=== PATIENT | female | born 1945 | race Caucasian/White ===

== ENCOUNTER 2020-01-26 11:04 | Outpatient (CLI) | payer MEDICARE, SELFPAY ==
--- NOTE | ~2020-01-26 | MM_ITS ---
EXAMINATION: MM diagnostic kyle RT w gaurav HISTORY: Personal history right breast cancer; status post right partial mastectomy in 2017 TECHNIQUE: Additional 3-D tomosynthesis images of were performed and synthetic 2-D images were genera nitza. CAD analysis was submitted and interpreted. COMPARISON: 07/28/2019, 01/24/2019 diagnostic right mammogram examinations BREAST PARENCHYMAL COMPOSITION: There are scattered areas of fibroglandular density. FINDINGS: Status post right partial mastectomy for history of breast cancer. Postoperative changes including surgical clips; no interval suspicious mass or new architectural dist ortion, skin thickening or retraction or any malignant calcification is evident. IMPRESSION: 1. Status post right partial mastectomy for breast cancer 2. No mammographic evidence of malignancy or significant change since 01/24/2019 BI-RADS Category 2: Benign finding(s). Reviewed, dictated and finalized at location A. IFIED SCRUM MASTER
== END 2020-01-26 11:05 | disposition home or self-care (01) ==
LOC: ANHIMG 11:23
PROVIDERS: PCP Family Medicine; Visit Provider Surgery Plastic and Reconstructive Surgery
DX: C50.511 Malignant neoplasm of lower-outer quadrant of right female breast (principal); Z17.0 Estrogen receptor positive status [ER+]
CPT/HCPCS: 77061; 77065; G0279

== ENCOUNTER 2020-04-08 14:43 | Emergency (ER) | payer MEDICARE, SELFPAY ==
--- NOTE | ~2020-04-08 | CT_ITS ---
EXAMINATION: CT abdomen pelvis w con INDICATION: Lower abdominal pain TECHNIQUE: Computed tomographic images of the abdomen and pelvis were obtained after the administrati on of 100 cc of Omnipaque 350 intravenous contrast. The dose-length product (DLP) was 198.92 mGy-cm. Automated exposure control and iterative reconstruction technique were employed. COMPARISON: 04/16/2016 FINDINGS: Minimal dependent atelectasis is present in the lung bases. The heart size is normal. The l iver, spleen, pancreas, gallbladder, and adrenal glands are normal. The kidneys are unremarkable. No pathologically enlarged abdominal or pelvic lymph nodes are identified. There is no free intraperiton eal gas or evidence of bowel obstruction. There is calcified atherosclerosis of the aorta and many of the other arteries. A moderate volume of colonic stool is present. There is mild lumbar spondylosis. IMPRESSION: 1. No CT correlate for the patient's symptoms. Reviewed, dictated and finalized at location A.
[2020-04-08 14:59] VITALS: BP 154/84; PULSE 69; RESP 18; TEMP 37.2; O2SAT 100
[2020-04-08 15:17] LABS: Basophils Absolute Auto 0.1 K/mm3 (0.0-0.1); Basophils Percent Auto 0.9 % (0.2-1.2); Eosinophils Absolute Auto 0.4 K/mm3 (0-0.3); Eosinophils Percent Auto 4.5 % (0-4.4); Hematocrit 41.9 % (37.0-47.0); Hemoglobin 14.4 g/dL (12.0-15.0); Immature Granulocyte Absolute 0.01 K/mm3 (0.00-0.031); Immature Granulocyte Percent A 0.1 % (0-0.5); Lymphocytes Absolute Auto 2.48 K/mm3 (0.9-3.2); Mean Corpuscular HGB Conc 34.4 g/dl (32-36); Mean Corpuscular Hemoglobin 32.7 pg (26-34); Mean Corpuscular Volume 95.2 fl (80-100); Mean Platelet Volume 9.2 fl (7.4-10.4); Monocytes Absolute Auto 0.7 K/mm3 (0.1-0.6); Neutrophils Absolute Auto 4.4 K/mm3 (1.3-6.7); Neutrophils Percent Auto 54.5 % (45.5-73.1); Platelet Count Result 322 k/mm3 (150-375)
[2020-04-08 15:29] LABS: Add Urine Microscopic? YES; Appearance Urine Clear (Clear); Bilirubin Urine Negative (Negative); Blood Urine 1+ (Negative); Color Urine Yellow (Yellow); Glucose Urine UA Negative (Negative); Ketones Urine Negative (Negative); Leukocyte Esterase Ur 1+ LEU/UL (Negative); Nitrate Urine Negative (Negative); Protein Urine Negative (Negative); RBC Urine 0-2 /hpf (0-2); Specific Grav Ur 1.011 (1.001-1.035); Squamous Epithelial Cell Urine Rare /hpf (Few); Urobilinogen Urine Negative mg/dL (<2.0)
[2020-04-08 15:32] LABS: Alanine Aminotransferase 15 U/L (4-35); Albumin Level 4.5 g/dL (3.5-5.1); Alkaline Phosphatase 62 U/L (38-126); Aspartate Amino Transferase 25 U/L (14-36); Bilirubin,Total 0.3 mg/dL (0.2-1.3); Blood Urea Nitrogen 13 mg/dL (7-17); Calcium 9.2 mg/dL (8.4-10.2); Carbon Dioxide 23 mmol/L (22-30); Chloride 98 mmol/L (98-107); Estimated CRCL calculation 53 ml/min; Estimated Glomerular Filt Rate > 60; Glucose 104 mg/dL (65-105); Lipase 196 U/L (23-300); Potassium 4.1 mmol/L (3.4-5.0); Sodium 129 mmol/L (137-145)
[2020-04-08 17:46] VITALS: BP 175/82; PULSE 60; RESP 18; O2SAT 100
--- NOTE | 2020-04-08 18:20 | PC.NURSE ---
called CT to make aware of IV placed for scan
--- NOTE | 2020-04-08 18:31 | ED.ABDPAIN ---
HPI - Abdominal Pain General Chief Complaint: Abdominal Pain Stated Complaint: PCP sent patient for CT of abd Time Seen by Provider: 04/08/20 16:23 Source: patient Mode of arrival: ambulatory Limitations: no limitations History of Present Illness HPI narrative: This is a 75 year old female that presents to the ER for abdominal pain x 2 days. Reports lower abdominal pain. Also reports some dysuria. Reports she was seen by her PCP for this and PCP tried to order a CT scan, but could not get it approved by insurance. Patient was told to report to the ER. Denies fever, nausea, vomiting, diarrhea, or hematuria. Related Data Home Medications Medication Instructions Recorded Confirmed atenolol 25 mg PO 04/08/20 hjlicxljey-ieimtbd-nafmvemk cap 04/08/20 Allergies Allergy/AdvReac Type Severity Reaction Status Date / Time prednisone Allergy Severe SHAKINESS Verified 04/08/20 16:19 tramadol Allergy Unknown Unknown Verified 04/08/20 16:21 cefprozil AdvReac Unknown SEVERE Verified 04/08/20 16:19 VOMITING topiramate AdvReac Unknown SEVERE Verified 04/08/20 16:19 VOMITING venlafaxine AdvReac Unknown SEVERE Verified 04/08/20 16:19 VOMITING Review of Systems Review of Systems: Narrative: CONSTITUTIONAL: Denies fever GASTROINTESTINAL: Reports abdominal pain. Denies nausea, vomiting, or diarrhea. GENITOURINARY: Denies dysuria or hematuria. All systems reviewed & are unremarkable except as noted in HPI and below PMFSH Past Medical History Medical History (Updated 04/08/20 @ 20:19 by Mackenzie Jacinto PA-C) History of breast cancer History of fibromyalgia History of hypertension Surgical History Surgical History (Updated 04/08/20 @ 18:35 by Mackenzie Jacinto PA-C) History of hysterectomy History of tonsillectomy Exam Narrative: Exam Narrative: GENERAL: Elderly, well-nourished, and in no acute distress. HEAD: Normocephalic, atraumatic. EYES: EOMI. CHEST: Clear to auscultation. No respiratory distress. No wheezes rales or rhonchi HEART: Regular rate and rhythm. No murmur heard. Normal peripheral pulses. ABDOMEN: Soft, nondistended, normal active bowel sounds. Mild tenderness to palpation of the lower abdomen, without guarding EXTREMITIES: Normal range of motion. No edema. SKIN: Warm, dry, no rash. NEURO: No focal deficits. Alert and oriented x3. PSYCH: Normal mood and affect Course Consultations Consultation #1: Spoke with patient's primary, Dr Crowley about work-up will follow-up in clinic. Date: 04/08/20 Time: 21:02 Vital Signs Vital signs: Vital Signs Temperature 99.0 F 04/08/20 14:59 Pulse Rate 69 04/08/20 14:59 Respiratory Rate 18 04/08/20 14:59 Blood Pressure 154/84 H 04/08/20 14:59 Pulse Oximetry 100 04/08/20 14:59 Temperature 99.0 F 04/08/20 14:59 Pulse Rate 70 04/08/20 19:09 Respiratory Rate 18 04/08/20 19:09 Blood Pressure 170/77 H 04/08/20 19:09 Pulse Oximetry 99 04/08/20 19:09 MDM - Abdominal Pain MDM Narrative Medical decision making narrative: Patient presents emergency department for lower abdominal pain. Also reports some dysuria. Patient is afebrile and nontoxic-appearing. CBC without leukocytosis. Metabolic with hyponatremia that seems to be chronic for her. UA with leukoesterase and white blood cells. Patient does report some dysuria. She will be started on oral antibiotics for this. Urine will go for culture. CT abdomen pelvis without acute findings. Patient updated on case findings. Spoke with patient's primary about work-up will follow-up in clinic. Patient is stable and felt appropriate for further outpatient evaluation. Patient was given warnings to return to the ER Lab Data Attestation: I reviewed the patient's lab results. Result diagrams: 04/08/20 15:03 04/08/20 15:03 Labs: Lab Results 04/08/20 04/08/20 04/08/20 Range/Units 15:03 15:03 15:18 WBC 8.0 (4.5-10.0) K/mm3 RBC 4.40 (4.2-5
[2020-04-08 19:09] VITALS: BP 170/77; PULSE 70; RESP 18; O2SAT 99
[2020-04-08 21:22] VITALS: BP 132/80; PULSE 80; RESP 20; TEMP 36.7; O2SAT 99
== END 2020-04-08 21:23 | disposition home or self-care (01) ==
PROVIDERS: Emergency Provider Emergency Medicine; PCP Family Medicine
DX: E87.1 Hypo-osmolality and hyponatremia (principal); Z85.3 Personal history of malignant neoplasm of breast; I10 Essential (primary) hypertension; M79.7 Fibromyalgia
CPT/HCPCS: 36415; 74177; 80053; 81001; 83690; 85025; 87086; 87088; 99284; A9270; Q9967

== ENCOUNTER 2020-04-23 00:39 | Outpatient (CLI) | payer MEDICARE, SELFPAY ==
[2020-04-23 18:39] LABS: SARS-CoV-2 RNA PCR Negative
== END 2020-04-23 00:40 | disposition home or self-care (01) ==
LOC: ANHCOVIDDT 00:39
PROVIDERS: PCP Family Medicine; Visit Provider Internal Medicine Gastroenterology
DX: Z01.812 Encounter for preprocedural laboratory examination (principal); Z20.828 Contact with and (suspected) exposure to other viral communicable diseases
CPT/HCPCS: 87635; C9803; U0003

== ENCOUNTER 2020-04-25 01:01 | Day surgery (SDC) | payer MEDICARE, SELFPAY ==
[2020-04-19 08:53] VITALS: BMI 18.9
[2020-04-25 06:30] VITALS: BP 173/89; PULSE 65; RESP 20; TEMP 36.9; O2SAT 99; BMI 19.1
[2020-04-25] MEDS: LACTATED RINGERS 1,000 ML 150 ML IV CONT (06:46)
--- NOTE | 2020-04-25 07:13 | WPDANESEPPF ---
Anes - Initial Pre Proc Eval Procedure: Operation Date: 04/25/20 07:30 Proposed Procedures p Screening Colonoscopy - Rojelio Gibson MD Date/Time: 04/25/20 07:13 Surgeon: Rojelio Gibson MD Pre Op Diagnosis: hx colon polyps, family hx colon ca Patient Data Age: 75 Gender: F Height: 5 ft 4 in Weight: 50.4 kg Last Vital Signs Temp 98.4 F 04/25/20 06:30 Pulse 65 04/25/20 06:30 Resp 20 04/25/20 06:30 BP 173/89 H 04/25/20 06:30 Pulse Ox 99 04/25/20 06:30 Allergies Allergy/AdvReac Type Severity Reaction Status Date / Time prednisone Allergy Severe SHAKINESS Verified 04/25/20 06:28 tramadol Allergy Unknown Vomiting Verified 04/25/20 06:28 cefprozil AdvReac Unknown SEVERE Verified 04/25/20 06:28 VOMITING topiramate AdvReac Unknown SEVERE Verified 04/25/20 06:28 VOMITING venlafaxine AdvReac Unknown SEVERE Verified 04/25/20 06:28 VOMITING Home Medications Medication Instructions Recorded Confirmed Type atenolol 25 mg PO DAILY 04/08/20 04/25/20 History mswhymmywc-hdywqgf-cngfhnjw 1 cap PO PRN PRN 04/08/20 04/25/20 History Reliv 1 scoop/day BYMOUTH DAILY 04/19/20 04/25/20 History vitamin B complex cap 04/19/20 History Patient hx anesthesia problems: none Family hx anesthesia problems: none PMFSH Past Medical History Medical History (Updated 04/25/20 @ 07:13 by Michael Lovelace MD) CAD (coronary artery disease) states skips beats and then beats hard; not as often since on atenolol History of breast cancer History of fibromyalgia History of hypertension Surgical History Surgical History (Updated 04/08/20 @ 18:35 by Mackenzie Jacinto PA-C) History of hysterectomy History of tonsillectomy Anes - Eval Final PreProcedure Day of Procedure 04/25/20 07:13 Patient weight: normal Heart: regular rate and rhythm Lungs: clear to auscultation Airway: Mallampati scale class II Neurological: alert and oriented Last oral intake: >/= 8 hours ASA classification: III Emergent: no Anesthetic plan: proceed Anesthesia type and monitoring: general GIVS and standard monitoring Informed Consent: The patient's anesthetic plan and its attendant risks and benefits were discussed with the patient/family/POA. Questions were solicited and answers provided to the satisfaction of the patient/family/POA.
--- NOTE | 2020-04-25 07:45 | WPDGICN ---
Assessment and Plan Assessment and plan (1) Family history of colon cancer in mother: Code(s): Z80.0 - Family history of malignant neoplasm of digestive organs Status: Acute (2) History of colon polyps: Code(s): Z86.010 - Personal history of colonic polyps Status: Acute Assessment and Plan: Plan is for surveillance colonoscopy because of family history of colon cancer and her own history of colon polyps. Exam should be considered at 5 year intervals. GI Consult Note Consult date/time: 04/25/20 07:45 HPI: Milagro Carolina is a 75 year old female Seen in evaluation at the request of Dr. Anirudh rojo. Patient has a personal history of colon polyps. Family history is significant mother had colon cancer. There is a strong family history of colon polyps and cancers throughout her family. Patient states that her current weight appetite bowel movements are normal. She denies abdominal pain. She denies any blood in her stools. Last colonoscopy was in 2016. Review of Systems Review of Systems: All systems reviewed & are unremarkable except as noted in HPI and below PMFSH Past Medical History Medical History CAD (coronary artery disease) states skips beats and then beats hard; not as often since on atenolol History of breast cancer History of fibromyalgia History of hypertension Surgical History Surgical History History of hysterectomy History of tonsillectomy Meds Home Medications and Allergies Home Medications Medication Instructions Recorded Confirmed Type atenolol 25 mg PO DAILY 04/08/20 04/25/20 History aanlxhlmhi-fdnzdbx-dmaksagf 1 cap PO PRN PRN 04/08/20 04/25/20 History Reliv 1 scoop/day BYMOUTH DAILY 04/19/20 04/25/20 History vitamin B complex cap 04/19/20 History Allergies Allergy/AdvReac Type Severity Reaction Status Date / Time prednisone Allergy Severe SHAKINESS Verified 04/25/20 06:28 tramadol Allergy Unknown Vomiting Verified 04/25/20 06:28 cefprozil AdvReac Unknown SEVERE Verified 04/25/20 06:28 VOMITING topiramate AdvReac Unknown SEVERE Verified 04/25/20 06:28 VOMITING venlafaxine AdvReac Unknown SEVERE Verified 04/25/20 06:28 VOMITING Vital Signs Vital Signs - 24 hr 04/25/20 06:30 Temperature 36.9 C Pulse Rate 65 Respiratory Rate 20 Blood Pressure 173/89 H Pulse Oximetry 99 Exam Narrative: Exam Narrative: Physical exam reveals patient to be alert. Vital signs are stable. HEENT exam unremarkable. Lungs are clear to auscultation and percussion. Heart is without murmur or extra sounds. Abdominal exam bowel sounds are present soft nontender with no hepatosplenomegaly. Digital external rectal exam is normal.
--- NOTE | 2020-04-25 07:47 | SUR.OPER ---
0747 SPOKE WITH SPOUSE VIA PHONE TO GIVE UP DATE
[2020-04-25 08:05] VITALS: BP 137/75; PULSE 67; RESP 23; O2SAT 98
[2020-04-25 08:15] VITALS: BP 142/80; PULSE 60; RESP 14; O2SAT 99
[2020-04-25 08:25] VITALS: BP 147/81; PULSE 56; RESP 14; O2SAT 100
== END 2020-04-25 08:55 | disposition home or self-care (01) ==
PROVIDERS: PCP Family Medicine; Visit Provider Internal Medicine Gastroenterology
PROC: 0DJD8ZZ Inspection of Lower Intestinal Tract, Via Natural or Artificial Opening Endoscopic (ICD-10-PCS; CPT 45378; principal; 2020-04-25 07:30)
DX: Z12.11 Encounter for screening for malignant neoplasm of colon (principal); K64.8 Other hemorrhoids; Z86.010 Personal history of colon polyps; Z80.0 Family history of malignant neoplasm of digestive organs; I25.10 Atherosclerotic heart disease of native coronary artery without angina pectoris; I10 Essential (primary) hypertension; Z85.3 Personal history of malignant neoplasm of breast
CPT/HCPCS: G0105; J2001; J2704; J7120

== ENCOUNTER 2020-07-06 10:07 | Outpatient (CLI) | payer MEDICARE, SELFPAY ==
--- NOTE | 2020-07-06 10:24 | ECG_ITS ---
Measurements Intervals [place] Rate: 66 P: 12 NV: 167 QRS: -37 QRSD: 78 T: 29 QT: 388 QTc: 408 Interpretive Statements SINUS RHYTHM LEFT AXIS DEVIATION BASELINE ARTIFACT- III, AVL, AVF, V2 BORDERLINE ECG Electronically Signed On 07-06-2020 12:45:01 CDT by Bridger Ramos D.O.
== END 2020-07-06 10:08 | disposition home or self-care (01) ==
PROVIDERS: PCP Family Medicine; Visit Provider Podiatrist Foot & Ankle Surgery
DX: R03.0 Elevated blood-pressure reading, without diagnosis of hypertension (principal); R94.31 Abnormal electrocardiogram [ECG] [EKG]
CPT/HCPCS: 93005

== ENCOUNTER 2020-09-25 13:24 | Outpatient (CLI) | payer MEDICARE, SELFPAY ==
--- NOTE | ~2020-09-25 | MM_ITS ---
EXAMINATION: MM screening kyle BI w gaurav HISTORY: Screening TECHNIQUE: Craniocaudal and mediolateral oblique 3-D tomosynthesis images were obtained and synthetic 2-D images were generated. CAD analysis was submitted and interpreted. COMPARISON: Comparison to multiple prior studies sequentially, with oldest reviewed study dated 07/18. BREAST PARENCHYMAL COMPOSITION: There are scattered areas of fibroglandular density. FINDINGS: There is no evidence of suspicious mass, calcification, or architectural distortion to sugg est malignancy in either breast. There has been no suspicious interval change. IMPRESSION: 1. No mammographic evidence of malignancy. 2. Recommend routine screening mammography in one year. BI-RADS Category 1: Negative Reviewed, dictated and finalized at location D. ATIONS PLANNER
== END 2020-09-25 13:25 | disposition home or self-care (01) ==
LOC: ANHIMG 13:25
PROVIDERS: PCP Family Medicine; Visit Provider Family Medicine
DX: Z12.31 Encounter for screening mammogram for malignant neoplasm of breast (principal)
CPT/HCPCS: 77063; 77067

== ENCOUNTER 2020-10-04 06:52 | Outpatient (NON) | payer MEDICARE, SELFPAY ==
[2020-10-05 01:02] LABS: SARS-CoV-2 RNA PCR Negative
== END 2020-10-04 06:53 ==
LOC: ANHCOVIDDT 06:52
PROVIDERS: PCP Family Medicine; Visit Provider Family Medicine
DX: Z20.828 Contact with and (suspected) exposure to other viral communicable diseases (principal); R05 Cough
CPT/HCPCS: 87635; C9803; U0003

== ENCOUNTER 2020-10-22 12:34 | Outpatient (CLI) | payer MEDICARE, SELFPAY ==
--- NOTE | ~2020-10-22 | US_ITS ---
EXAMINATION: US carotid duplex BI DATE: 10/22/2020 13:16 INDICATION: Symptoms involving the circulatory/respiratory systems. TECHNIQUE: Grayscale, color Doppler, and pulsed Doppler images of the cervical carotid arteries were obtained. The degree of vessel stenosis is placed in one of the following categories: normal, <50%, 5 0-69%, >=70% but less than near-occlusion, near-occlusion, or total occlusion. Note that percent sten osis relative to normal distal artery lumen diameter is indirectly measured from velocity measurement s as described by Jaxson, et al. Radiology 2003; 229:340-346. COMPARISON: None. FINDINGS: RIGHT: The right common carotid artery (CCA) peak systolic velocity (PSV) is 68 cm/s. The right internal car otid artery (ICA) PSV is 77 cm/s. The right ICA end-diastolic velocity (EDV) is 25 cm/s. The right IC A/CCA PSV ratio is 1.1. Grayscale and color Doppler images yield an estimate of <50% diameter reducti on from plaque in the ICA. There is antegrade flow in the right vertebral artery. LEFT: The left CCA PSV is 57 cm/s. The left ICA PSV is 95 cm/s. The left ICA EDV is 32 cm/s. The left ICA/C CA PSV ratio is 1.7. Grayscale and color Doppler images yield an estimate of <50% diameter reduction from plaque in the ICA. There is antegrade flow in the left vertebral artery. IMPRESSION: 1. <50% stenosis in the right internal carotid artery. 2. <50% stenosis in the left internal carotid artery. Reviewed, dictated and finalized at location A. ICAL INVESTIGATOR
== END 2020-10-22 12:35 | disposition home or self-care (01) ==
PROVIDERS: PCP Family Medicine; Visit Provider Family Medicine
DX: R09.89 Other specified symptoms and signs involving the circulatory and respiratory systems (principal); I65.23 Occlusion and stenosis of bilateral carotid arteries
CPT/HCPCS: 93880

== ENCOUNTER → 2021-05-06 01:12 | Outpatient (CLI) | payer MEDICARE, SELFPAY ==
[2021-05-06 17:24] LABS: SARS-CoV-2 RNA PCR Negative
== END ==
PROVIDERS: PCP Family Medicine; Visit Provider Podiatrist Foot & Ankle Surgery
DX: Z01.812 Encounter for preprocedural laboratory examination (principal); Z20.822 Contact with and (suspected) exposure to COVID-19
CPT/HCPCS: C9803; U0003; U0005

== ENCOUNTER 2021-05-09 00:10 | Day surgery (SDC) | payer MEDICARE, SELFPAY ==
[2021-04-28 11:54] VITALS: BMI 19.2
[2021-05-09 11:27] VITALS: BP 146/81; PULSE 56; RESP 16; TEMP 36.5; O2SAT 100
[2021-05-09] MEDS: LACTATED RINGERS 1,000 ML 30 ML IV CONT (11:34)
--- NOTE | 2021-05-09 12:36 | WPDHPUPDATE1 ---
History and Physical Update Update Date/Time: 05/09/21 12:36 History and Physical has been reviewed, including an updated exam of the patient. There are NO changes in the patient's condition. Risks, benefits, and alternatives have been discussed and questions answered. Patient agrees to proceed with procedure. - Excision of ganglion and arthroplasy 2nd digit left
--- NOTE | 2021-05-09 12:47 | WPDANESEPPF ---
Anes - Initial Pre Proc Eval Procedure: Operation Date: 05/09/21 13:00 Proposed Procedures p Arthroplasty Second Toe Left Foot, Fusion Distal Interphalangeal Joint Second Toe Left Foot, - Anirudh German DPM s Excision Ganglion Cyst Second Toe Left Foot - Anirudh German DPM Date/Time: 05/09/21 12:47 Surgeon: Anirudh German DPM Pre Op Diagnosis: ganglion cyst 2nd toe left foot Patient Data Age: 76 Gender: F Height: 5 ft 4 in Weight: 47.8 kg Last Vital Signs Temp 97.7 F 05/09/21 11:27 Pulse 56 L 05/09/21 11:27 Resp 16 05/09/21 11:27 BP 146/81 H 05/09/21 11:27 Pulse Ox 100 05/09/21 11:27 Allergies Allergy/AdvReac Type Severity Reaction Status Date / Time prednisone Allergy Severe SHAKINESS Verified 05/09/21 11:04 tramadol Allergy Unknown Vomiting Verified 05/09/21 11:04 cefprozil AdvReac Unknown SEVERE Verified 05/09/21 11:04 VOMITING topiramate AdvReac Unknown SEVERE Verified 05/09/21 11:04 VOMITING venlafaxine AdvReac Unknown SEVERE Verified 05/09/21 11:04 VOMITING Home Medications Medication Instructions Recorded Confirmed Type atenolol 25 mg PO QAM 04/08/20 05/09/21 History lijmhcnmuc-tfbvhyh-jzwvrvbw 1 cap PO PRN PRN 04/08/20 05/09/21 History Reliv 1 scoop/day BYMOUTH DAILY 04/19/20 05/09/21 History vitamin B complex 1 cap QAM 04/19/20 05/09/21 History carboxymethylcellulose sodium 1 drp EACH EYE BID 04/28/21 05/09/21 History [Refresh] cyclosporine [Restasis] 1 drp EACH EYE Q12H 04/28/21 05/09/21 History lisinopril 20 mg PO DAILY 05/09/21 05/09/21 History Patient hx anesthesia problems: none Family hx anesthesia problems: none PMFSH Past Medical History Medical History (Updated 04/25/20 @ 07:47 by Rojelio Gibson MD) CAD (coronary artery disease) states skips beats and then beats hard; not as often since on atenolol History of breast cancer History of fibromyalgia History of hypertension Surgical History Surgical History History of hysterectomy History of tonsillectomy Social History Social History Smoking status: Never smoker Second hand tobacco smoke exposure: No Alcohol intake: never Substance use: never Substance use type: does not use Living arrangements: with family Spiritual care concerns: No Anes - Eval Final PreProcedure Day of Procedure 05/09/21 12:47 Patient weight: normal Heart: regular rate and rhythm Lungs: clear to auscultation Airway: Mallampati scale class II Neurological: alert and oriented Last oral intake: >/= 8 hours ASA classification: III Emergent: no Anesthetic plan: proceed Anesthesia type and monitoring: general GIVS and standard monitoring Informed Consent: The patient's anesthetic plan and its attendant risks and benefits were discussed with the patient/family/POA. Questions were solicited and answers provided to the satisfaction of the patient/family/POA.
[2021-05-09] MEDS: CLINDAMYCIN 900 MG/D5W 50 ML 900 MG/50 ML PIGGYBACK 50 MG IVPB (12:52)
[2021-05-09] MEDS: BUPIVACAINE HCL 0.5% PF 30 ML VIAL INFILTRATE (13:00)
[2021-05-09] MEDS: LIDOCAINE HCL 2% LOCAL INJ 20 ML VIAL 3 ML INFILTRATE (13:22)
[2021-05-09] MEDS: NEOMYCIN/POLYMYXIN/BACITRACIN OINTMENT PACKET 1 PACKET TOPICAL (13:23)
--- NOTE | 2021-05-09 13:28 | P.OPB_ITS ---
Procedure Note - Brief Procedure Note - Brief Date of procedure: 05/09/21 Pre-op diagnosis: ganglion cyst 2nd toe left foot Post-op diagnosis: same Procedure performed: Excision of ganglion cyst left 2nd toe Arthrodesis DIPJ 2nd toe left Description of procedure: Under monitored sedation patient was brought into the operating room, placed on the operating table in a supine position. Following IV sedation local anesthesia was obtained using 2% Lidocaine plain and 0.5% Marcaine plain. The foot was then scrubbed, prepped and draped in the usual aseptic manner. Esmark bandage used to exsanguinate the patient?s left foot and the ankle tourniquet was inflated to 250mm. Attention was then directed to the 2nd digit where a wedge shaped incision made dorsal to the DIPJ and surrounding the ganglion. It was deepened down to the level of the DIPJ. Using sharp and blunt dissection a transverse tenotomy was performed at the joint. The head of the middle phalanx was resected free of its soft tissue attachments and resected using oscillating saw which was also used to debride the base of the distal phalanx of all soft cartilage. The joint was then fixated in place using 1, .045 inch K-wire. The wound was then flushed with copious amounts of sterile normal saline. Tendons were repaired with 3-0 vicryl, skin was repaired using 4-0 nylon. Implants: 0.045 c-wire Anesthesia: MAC Surgeon: Anirudh German DPM University Relations Vice President: None Estimated blood loss (mL): 5 Drains: No Packing: No Pathology: yes Complications: No immediate complications Condition: stable Disposition: PACU
[2021-05-09 13:32] VITALS: BP 149/72; PULSE 55; RESP 15; O2SAT 100
[2021-05-09 13:50] VITALS: BP 156/78; PULSE 59; RESP 14
[2021-05-09 14:20] VITALS: BP 152/78; PULSE 55; RESP 14
== END 2021-05-09 14:34 | disposition home or self-care (01) ==
PROVIDERS: PCP Family Medicine; Visit Provider Podiatrist Foot & Ankle Surgery
PROC: (CPT 28285; principal; 2021-05-09 13:00)
PROC: (CPT 28285; 2021-05-09 13:00)
DX: M67.472 Ganglion, left ankle and foot (principal); I25.10 Atherosclerotic heart disease of native coronary artery without angina pectoris; Z85.3 Personal history of malignant neoplasm of breast; M79.7 Fibromyalgia; I10 Essential (primary) hypertension
CPT/HCPCS: 28285; 88304; 88305; A9270; C1713; C9803; J1100; J2405; J2704; J3010; J7120; U0003; U0005

== ENCOUNTER 2021-08-15 12:44 | Outpatient (CLI) | payer MEDICARE, SELFPAY ==
--- NOTE | ~2021-08-15 | MMUS_ITS ---
EXAMINATION: MM diagnostic kyle RT w gaurav, US breast RT complete HISTORY: Right axillary lump under arm noticed by patient one week ago; history of right partial mast ectomy for breast cancer TECHNIQUE: ML, MLO and CC 3-D tomosynthesis images of the right breast were performed and synthetic 2 -D images were generated. CAD analysis was submitted and interpreted. High resolution complete right breast and right axillary ultrasound was performed. COMPARISON: 09/25/2020 bilateral digital screening mammogram 05/31/2018 diagnostic right mammogram BREAST PARENCHYMAL COMPOSITION: There are scattered areas of fibroglandular density. FINDINGS: MAMMOGRAPHIC FINDINGS: There is interval development of new microcalcifications in the anterior right mid to lower medial br east. There are multiple calcifications at a right approximately 1.5 cm axillary lymph node. ULTRASOUND: 5:00 near nipple: There is an irregular hypoechoic area with vascularity and prominent posterior sha dowing, suspicious for recurrent or new malignancy. There is an 8.4 x 16.8 mm axillary lymph node with stippled densities consistent with calcification. Metastatic breast malignancy is suggested. IMPRESSION: 1. New 5:00 mass with microcalcifications, suspicious for recurrent or new malignancy, right axillary probable metastatic lymph node with microcalcifications 2. Consider ultrasound-guided biopsy of right 5:00 lesion and right axillary lymph node with microcal cifications BI-RADS Category 5: Highly suggestive of malignancy Dr. Austin telephoned the BI-RADS Category 5 report and recommendation for ultrasound-guided biopsy of right 5:00 lesion and right axillary node with microcalcifications to Nedra, Physician Head Banquet Waitress, on 08/15/2021 at 1413 hours Reviewed, dictated and finalized at location A. IMPRESSION: 1. New 5:00 mass with microcalcifications, suspicious for recurrent or [place], right axillary probable metastatic lymph node with microcalcifications 2. Consider ultrasound-guided biopsy of right 5:00 lesion and right axillary ly mph node with microcalcifications BI-RADS Category 5: Highly suggestive of malignancy Dr. Austin telephoned the BI-RADS Category 5 report and recommendation for ultras ound-guided biopsy of right 5:00 lesion and right axillary node with microcalci fications to Nedra Physician Head Banquet Waitress, on 08/15/2021 at 1413 hours
== END 2021-08-15 12:45 | disposition home or self-care (01) ==
LOC: ANHIMG 12:46
PROVIDERS: PCP Family Medicine; Visit Provider Physician Assistant
DX: R59.1 Generalized enlarged lymph nodes (principal); R92.8 Other abnormal and inconclusive findings on diagnostic imaging of breast
CPT/HCPCS: 76641; 77061; 77065; G0279

== ENCOUNTER 2021-11-21 18:07 | Emergency (ER) | payer MEDICARE, SELFPAY ==
[2021-11-21 18:15] VITALS: BP 187/83; PULSE 75; RESP 14; TEMP 36.6; O2SAT 98
--- NOTE | 2021-11-21 19:09 | ED.GENADULT ---
HPI - General Adult General Chief complaint: Unspecified Stated complaint: post op bleeding Time Seen by Provider: 11/21/21 18:15 Source: patient Mode of arrival: ambulatory Limitations: no limitations History of Present Illness HPI narrative: Patient is status post bilateral mastectomy 3 days ago at [facility], Dr. Grace. 1 hour prior to arrival to the emergency room noticed some blood leaking at the drain site. Patient denies any fever, chills, nausea, vomiting, shortness of breath. Related Data Home Medications Medication Instructions Recorded Confirmed atenolol 25 mg PO QAM 04/08/20 05/09/21 [id number]-lxiopnx-[id number] 1 cap PO PRN PRN 04/08/20 05/09/21 Reliv 1 scoop/day BYMOUTH DAILY 04/19/20 05/09/21 vitamin B complex 1 cap QAM 04/19/20 05/09/21 carboxymethylcellulose sodium 1 drp EACH EYE BID 04/28/21 05/09/21 [Refresh] cyclosporine [Restasis] 1 drp EACH EYE Q12H 04/28/21 05/09/21 lisinopril 20 mg PO DAILY 05/09/21 05/09/21 Allergies Allergy/AdvReac Type Severity Reaction Status Date / Time prednisone Allergy Severe SHAKINESS Verified 05/09/21 11:04 tramadol Allergy Unknown Vomiting Verified 05/09/21 11:04 cefprozil AdvReac Unknown SEVERE Verified 05/09/21 11:04 VOMITING topiramate AdvReac Unknown SEVERE Verified 05/09/21 11:04 VOMITING venlafaxine AdvReac Unknown SEVERE Verified 05/09/21 11:04 VOMITING Review of Systems Review of Systems: CONSTITUTIONAL: Denies fever, chills, or sweats. EYES: Denies visual changes, redness, or discharge. ENT: Denies rhinorrhea, congestion, sore throat, or otalgia. CARDIOVASCULAR: Denies chest pain, palpitations, or edema. RESPIRATORY: Denies cough or dyspnea. GASTROINTESTINAL: Denies abdominal pain, nausea, vomiting, or diarrhea. GENITOURINARY: Denies dysuria or hematuria. SKIN: Denies rash or itching. MUSCULOSKELETAL: Denies back pain, joint pain, or myalgia. NEUROLOGIC: Denies headache, numbness, or weakness. PSYCHIATRIC: Denies anxiety or depression. PMFSH Past Medical History Medical History (Updated 11/21/21 @ 19:19 by Miki Quintero MD) CAD (coronary artery disease) states skips beats and then beats hard; not as often since on atenolol History of breast cancer History of fibromyalgia History of hypertension Surgical History Surgical History History of hysterectomy History of tonsillectomy Social History Social History Smoking status: Never smoker Second hand tobacco smoke exposure: No Alcohol intake: never Substance use: never Substance use type: does not use Spiritual care concerns: No Exam Narrative: General appearance: Well-developed, well-nourished Skin: Status post bilateral mastectomy, the wound looks dry and clean bilaterally. Some with blood and small blood clot at the site of the drain exit out of the skin. The dressing was removed, the area was cleaned, no active bleeding at this time. 4 x 4 dressing applied, pressure tape. No active bleedig. Head: Normocephalic, nontraumatic ears normal, nose normal Neck: Supple, nontender Chest and respiratory: Airway patent, no respiratory distress, no accessory muscle use Heart: Regular rate/rhythm Abdomen: Soft, nontender, no organomegaly, quiet bowel sounds Vascular: Normal peripheral pulses, normal capillary refill. Neurologic: Alert and oriented ?3, Course Course Emergency Course: Improved Consultations Consultation #1: DR CAO. As long as patient have no bruises around the drain site, this could be expected, change dressing and patient received a phone ca
--- NOTE | 2021-11-21 20:03 | PC.NURSE ---
Viridiana RN was primary RN until 190. Robert primary RN but I discharged pt.
[2021-11-21 20:04] VITALS: BP 138/71; PULSE 66; RESP 14; O2SAT 96
== END 2021-11-21 20:07 | disposition home or self-care (01) ==
PROVIDERS: Emergency Provider Emergency Medicine; PCP Family Medicine
DX: L76.22 Postprocedural hemorrhage of skin and subcutaneous tissue following other procedure (principal); I25.10 Atherosclerotic heart disease of native coronary artery without angina pectoris; I10 Essential (primary) hypertension; Z85.3 Personal history of malignant neoplasm of breast
CPT/HCPCS: 99282

== ENCOUNTER 2021-11-22 01:12 | Emergency (ER) | payer MEDICARE, SELFPAY ==
[2021-11-22 01:29] VITALS: BP 113/70; PULSE 70; RESP 16; TEMP 36.2; O2SAT 97
--- NOTE | 2021-11-22 02:28 | ED.GENADULT ---
HPI - General Adult General Chief complaint: Wound/Laceration Stated complaint: Bleeding from surgical site Time Seen by Provider: 11/22/21 01:50 History of Present Illness HPI narrative: 76-year-old female presented to the emergency department for evaluation of bleeding from her previous surgical site. Patient had a mastectomy done by Dr. Reyes. Dressing was changed. Today the suctionable had blood in the tubing. This blood was removed from the tubing and they are now draining better. Since being in the emergency department patient has had no bleeding from the surgical wound. Related Data Home Medications Medication Instructions Recorded Confirmed atenolol 25 mg PO QAM 04/08/20 05/09/21 dpeinurlgd-dhlolsa-lervibuw 1 cap PO PRN PRN 04/08/20 05/09/21 Reliv 1 scoop/day BYMOUTH DAILY 04/19/20 05/09/21 vitamin B complex 1 cap QAM 04/19/20 05/09/21 carboxymethylcellulose sodium 1 drp EACH EYE BID 04/28/21 05/09/21 [Refresh] cyclosporine [Restasis] 1 drp EACH EYE Q12H 04/28/21 05/09/21 lisinopril 20 mg PO DAILY 05/09/21 05/09/21 Allergies Allergy/AdvReac Type Severity Reaction Status Date / Time prednisone Allergy Severe SHAKINESS Verified 05/09/21 11:04 tramadol Allergy Unknown Vomiting Verified 05/09/21 11:04 cefprozil AdvReac Unknown SEVERE Verified 05/09/21 11:04 VOMITING topiramate AdvReac Unknown SEVERE Verified 05/09/21 11:04 VOMITING venlafaxine AdvReac Unknown SEVERE Verified 05/09/21 11:04 VOMITING Review of Systems Review of Systems: CONSTITUTIONAL: Denies fever, chills, or sweats. EYES: Denies visual changes, redness, or discharge. ENT: Denies rhinorrhea, congestion, sore throat, or otalgia. CARDIOVASCULAR: Denies chest pain, palpitations, or edema. RESPIRATORY: Denies cough or dyspnea. GASTROINTESTINAL: Denies abdominal pain, nausea, vomiting, or diarrhea. GENITOURINARY: Denies dysuria or hematuria. SKIN: Bleeding from right-sided surgical site MUSCULOSKELETAL: Denies back pain, joint pain, or myalgia. NEUROLOGIC: Denies headache, numbness, or weakness. PSYCHIATRIC: Denies anxiety or depression. [facility] Past Medical History Medical History (Updated 11/22/21 @ 03:03 by Iraj Green MD) CAD (coronary artery disease) states skips beats and then beats hard; not as often since on atenolol History of breast cancer History of fibromyalgia History of hypertension Surgical History Surgical History History of hysterectomy History of tonsillectomy Social History Social History Smoking status: Never smoker Second hand tobacco smoke exposure: No Alcohol intake: never Substance use: never Substance use type: does not use Spiritual care concerns: No Course Course Emergency Course: Patient's dressing was changed. The dressing on arrival he did have blood soaked gauze. No active bleeding was seen. Patient's grenade bulb suction devices were ensured to be working. Patient had no additional rebleeding while in the emergency department. Surgical site was well-appearing with no erythema and minor ecchymosis. No active bleeding. States that she is scheduled to have contact with her surgeon today. Patient was comfortable with the plan for discharge and close follow-up. Patient was also educated on reasons to return to the emergency department. All questions concerns were addressed. Vital Signs Vital signs: Vital Signs Temperature 97.2 F L 11/22/21 01:29 Pulse Rate 70 11/22/21 01:29 Respiratory Rate 16 11/22/21 01:29 Blood Pressure 113/70 11/22/21 01:29 Pulse Oximetry 97 11/22/21 01:29 Temperature 97.2 F L 11/22/21 01:29 Pulse Rate 63 11/22/21 03:48 Respiratory Rate 14 11/22/21 03:48 Blood Pressure 154/76 H 11/22/21 03:48 Pulse Oximetry 99 11/22/21 03:48 Medical Decision Making Vital Signs Vital Signs: Vital Signs Te
--- NOTE | 2021-11-22 03:14 | PC.NURSE ---
SHAQUILLE drains milked and appear to be draining freely
[2021-11-22 03:48] VITALS: BP 154/76; PULSE 63; RESP 14; O2SAT 99
== END 2021-11-22 03:38 | disposition home or self-care (01) ==
PROVIDERS: Emergency Provider Emergency Medicine; PCP Family Medicine
DX: L76.22 Postprocedural hemorrhage of skin and subcutaneous tissue following other procedure (principal); I25.10 Atherosclerotic heart disease of native coronary artery without angina pectoris; Z85.3 Personal history of malignant neoplasm of breast
CPT/HCPCS: 99282

== ENCOUNTER 2022-01-13 07:50 | Emergency (ER) | payer MEDICARE, SELFPAY ==
[2022-01-13] VITALS (8 sets, daily range): BP systolic 138–175; BP diastolic 72–87; PULSE 68–84; RESP 13–19; TEMP 37.1; O2SAT 95–100
--- NOTE | ~2022-01-13 | XR_ITS ---
EXAMINATION: XR abdomen/kub 1V EXAM DATE: 01/13/2022 08:36 INDICATION: constipation, last known BM was 4 days ago, small in amount. TECHNIQUE: Frontal projection(s) of the abdomen for interpretation. There is no prior study for javon sanchez. FINDINGS: There is moderate amount of colonic stool and gas. No small bowel dilation, nonobstructiv e bowel gas pattern. Calcifications in the pelvis are believed to be phleboliths. There are no susp icious calcifications identified. There is no organomegaly suspected. There are mild bony degenera tive changes. IMPRESSION: Moderate amount of colonic stool. Reviewed, dictated and finalized at location A. ING STAFFING COORDINATOR
--- NOTE | 2022-01-13 08:42 | ED.GENADULT ---
HPI - General Adult General Chief complaint: Nausea/Vomiting/Diarrhea Stated complaint: Constipation Time Seen by Provider: 01/13/22 07:54 History of Present Illness HPI narrative: Patient is a 76-year-old female who presents the ER with constipation. Ongoing x1 week. She had some small hard stool passed 4 days ago. She tried taking Colace and senna last night without improvement. Patient also unable to perform a enema on herself. She is now having some stomach cramping and some nausea. No abdominal distention. No history of bowel obstruction. Patient recently had a port placed to undergo chemotherapy for breast cancer at [facility]. Related Data Home Medications Medication Instructions Recorded Confirmed atenolol 25 mg PO QAM 04/08/20 05/09/21 ricwklnvus-eqeyhqr-gborqjrw 1 cap PO PRN PRN 04/08/20 05/09/21 Reliv 1 scoop/day BYMOUTH DAILY 04/19/20 05/09/21 vitamin B complex 1 cap QAM 04/19/20 05/09/21 carboxymethylcellulose sodium 1 drp EACH EYE BID 04/28/21 05/09/21 [Refresh] cyclosporine [Restasis] 1 drp EACH EYE Q12H 04/28/21 05/09/21 lisinopril 20 mg PO DAILY 05/09/21 05/09/21 Allergies Allergy/AdvReac Type Severity Reaction Status Date / Time prednisone Allergy Severe SHAKINESS Verified 05/09/21 11:04 tramadol Allergy Unknown Vomiting Verified 05/09/21 11:04 cefprozil AdvReac Unknown SEVERE Verified 05/09/21 11:04 VOMITING topiramate AdvReac Unknown SEVERE Verified 05/09/21 11:04 VOMITING venlafaxine AdvReac Unknown SEVERE Verified 05/09/21 11:04 VOMITING Review of Systems Review of Systems: All systems reviewed & are unremarkable except as noted in HPI and below Constitutional: Constitutional: Denies chills, Denies fever(s) and Denies weakness Cardiovascular: Cardiovascular: Denies chest pain, Denies rapid heart rate and Denies radiating jaw, neck or arm pain Respiratory: Respiratory: Denies cough and Denies dyspnea Gastrointestinal: Gastrointestinal: Denies abdominal pain, Denies bloating, Reports constipation, Reports nausea and Denies vomiting [facility] Past Medical History Medical History (Updated 01/13/22 @ 10:25 by Bud Meza MD) CAD (coronary artery disease) states skips beats and then beats hard; not as often since on atenolol History of breast cancer History of fibromyalgia History of hypertension Port-A-Cath in place Surgical History Surgical History History of hysterectomy History of tonsillectomy Social History Social History Smoking status: Never smoker Second hand tobacco smoke exposure: No Alcohol intake: never Substance use: never Substance use type: does not use Spiritual care concerns: No Exam Narrative: GENERAL: Well-appearing, well-nourished, and in no acute distress. HEAD: Normocephalic, atraumatic. NECK: Supple. CHEST: Clear to auscultation. No respiratory distress. HEART: Regular rate and rhythm. Normal peripheral pulses. ABDOMEN: Soft, nontender, nondistended, normal active bowel sounds. EXTREMITIES: Normal range of motion. No edema. SKIN: Warm, dry, no rash. NEURO: Alert and oriented x3. PSYCH: Normal mood and affect. Course Course Emergency Course: Enema with success. Discharge home. Recommend daily Colace which patient already has. Vital Signs Vital signs: Vital Signs Temperature 98.8 F 01/13/22 07:58 Pulse Rate 84 01/13/22 07:58 Respiratory Rate 16 01/13/22 07:58 Blood Pressure 160/86 H 01/13/22 07:58 Pulse Oximetry 95 01/13/22 07:58 Temperature 98.8 F 01/13/22 07:58 Pulse Rate 68 01/13/22 09:46 Respiratory Rate 18 01/13/22 09:46 Blood Pressure 143/72 H 01/13/22 09:46 Pulse Oximetry 99 01/13/22 09:46 Medical Decision Making Vital Signs Vital Signs: Vital Signs Temperature 98.8 F 01/13/22 07:58 Pulse Rate 84 01/13/22 07:58 Respiratory Rate 16 01/13/22 0
== END 2022-01-13 10:45 | disposition home or self-care (01) ==
PROVIDERS: Emergency Provider Emergency Medicine; PCP Family Medicine
DX: K59.00 Constipation, unspecified (principal); C50.919 Malignant neoplasm of unspecified site of unspecified female breast; M79.7 Fibromyalgia; I10 Essential (primary) hypertension; I25.10 Atherosclerotic heart disease of native coronary artery without angina pectoris
CPT/HCPCS: 74018; 99283

== ENCOUNTER 2022-02-10 19:29 | Emergency (ER) | payer MEDICARE, SELFPAY ==
[2022-02-10] VITALS (21 sets, daily range): BP systolic 131–186; BP diastolic 68–94; PULSE 67–83; RESP 8–20; TEMP 36.6; O2SAT 94–100
--- NOTE | ~2022-02-10 | XR_ITS ---
EXAMINATION: XR chest 2V EXAM DATE: 02/10/2022 20:04 INDICATION: CP, Radiates To Rt Shoulder, Hx Cad, Hx Breast Cancer,Hx HTN TECHNIQUE: Frontal and lateral projections of the chest obtained and reviewed. Comparison is made to prior examination from 07/26/2015. FINDINGS: There is a left-sided Chemo-Port. Tip appears to be projecting laterally rather than infer iorly, probably in the superior vena cava. No confluent consolidation, pneumothorax or pleural effusi on suspected. Mild thoracolumbar scoliosis. IMPRESSION: 1. No acute cardiac pulmonary findings. 2. Portacatheter with tip projecting laterally, likely in the SVC. Reviewed, dictated and finalized at location G.
--- NOTE | ~2022-02-10 | CT_ITS ---
EXAMINATION: CTA chest PE protocol EXAM DATE: 02/10/2022 21:41 INDICATION: Chest pain, shortness of breath. TECHNIQUE: Spiral CTA of the chest (pulmonary arteries) was performed with 100 cc Omnipaque 350 intr avenous contrast injection. Images were acquired during the pulmonary arterial phase. Coronal maxi mum intensity projection 3D-reconstructions were created by the technologist on dedicated workstation . Axial, coronal and sagittal reformatted images were reviewed. The dose-length product (DLP) for t his examination was 155.94 mGy-cm. The exposure was tailored according to patient size (auto mA exp osure control), and iterative reconstruction (ASIR) was used as additional dose reduction technique. There is no prior study for comparison. FINDINGS: There is a left-sided portacatheter with tip at the brachiocephalic junction, aiming slight ly cephalad rather than inferiorly. Pulmonary arteries are well opacified and without intraluminal fi lling defects. No thoracic aortic dissection. There is mild emphysema and bronchiectasis. There is left lower lobe medial segmental atelectasis. No suspicious pulmonary opacities. There are no pleur al or pericardial effusions. Tracheobronchial tree is patent. There is no mediastinal, hilar or a xillary lymphadenopathy. There is no pneumothorax. Heart normal in size. No evidence of coronar y arterial calcification. Upper abdomen is unremarkable. There is thoracic spondylosis without ost eoblastic or osteolytic lesions identified. Suspicion of mid esophageal wall thickening, differenti al diagnosis including esophagitis and cancer. IMPRESSION: 1. Possible mid esophageal wall thickening, could be esophagitis or cancer. Clinical correlation, co nsider follow-up nonemergent esophagram. 2. Left lower lobe segmental atelectasis. 3. Mild emphysema and bronchiectasis. 4. No pulmonary emboli. 5. Left rafael catheter tip at the brachiocephalic junction, pointing slightly cephalad rather than i nferiorly. Reviewed, dictated and finalized at location G. IMPRESSION: 1. Possible mid esophageal wall thickening, could be esophagitis or cancer. Cl inical correlation, consider follow-up nonemergent esophagram. 2. Left lower lobe segmental atelectasis. 3. Mild emphysema and bronchiectasis. 4. No pulmonary emboli. 5. Left rafael catheter tip at the brachiocephalic junction, pointing slightly cephalad rather than inferiorly.
--- NOTE | 2022-02-10 19:31 | ECG_ITS ---
Measurements Intervals [place] Rate: 76 P: 23 NE: 145 QRS: -38 QRSD: 76 T: 38 QT: 355 QTc: 400 Interpretive Statements SINUS RHYTHM MARKED LEFT AXIS DEVIATION [QRS AXIS < -30] POSSIBLE RIGHT VENTRICULAR CONDUCTION DELAY [RSR (QR) IN V1/V2] ABNORMAL ECG COMPARED TO ECG 07/06/2020 10:31:25 NO SIGNIFICANT CHANGES Electronically Signed On 02-11-2022 13:52:51 CDT by Oscar Matos M.D.
--- NOTE | 2022-02-10 19:59 | PC.NURSE ---
Pt reports being pain free at this time. States she had difficulty swallowing earlier today. Pt is currently undergoing chemo for breast CA, last treatment 01/30/2022.
--- NOTE | 2022-02-10 20:03 | ED.CHESTPAIN ---
HPI - Chest Pain General Chief Complaint: Chest Pain Stated Complaint: chest pain, back pain Time Seen by Provider: 02/10/22 19:52 Source: patient Mode of arrival: ambulatory Limitations: no limitations History of Present Illness HPI narrative: Patient is a 68-year-old female complaining of upper back pain, 9 out of 10, sharp, radiating to her chest that started tonight. Patient denies any shortness of breath, abdominal pain, nausea, vomiting, diaphoresis, fever or chills. Patient currently undergoing chemotherapy due to breast cancer. Related Data Home Medications Medication Instructions Recorded Confirmed atenolol 25 mg PO QAM 04/08/20 05/09/21 oulugmbdlr-zqfkkyn-zzdpwomr 1 cap PO PRN PRN 04/08/20 05/09/21 Reliv 1 scoop/day BYMOUTH DAILY 04/19/20 05/09/21 vitamin B complex 1 cap QAM 04/19/20 05/09/21 carboxymethylcellulose sodium 1 drp EACH EYE BID 04/28/21 05/09/21 [Refresh] cyclosporine [Restasis] 1 drp EACH EYE Q12H 04/28/21 05/09/21 lisinopril 20 mg PO DAILY 05/09/21 05/09/21 Allergies Allergy/AdvReac Type Severity Reaction Status Date / Time prednisone Allergy Severe SHAKINESS Verified 02/10/22 19:45 tramadol Allergy Unknown Vomiting Verified 02/10/22 19:45 cefprozil AdvReac Unknown SEVERE Verified 02/10/22 19:45 VOMITING topiramate AdvReac Unknown SEVERE Verified 02/10/22 19:45 VOMITING venlafaxine AdvReac Unknown SEVERE Verified 02/10/22 19:45 VOMITING Review of Systems Review of Systems: All systems reviewed & are unremarkable except as noted in HPI and below Constitutional: Constitutional: Denies body ache(s), Denies chills, Denies excessive sweating, Denies fatigue, Denies fever(s), Denies headache(s), Denies lethargy, Denies malaise, Denies weakness and Denies weight loss Eyes: Eyes: Denies blurry vision, Denies change in vision and Denies loss of vision ENT: Denies dizziness, Denies ear discharge, Denies headache(s), Denies lip swelling, Denies epistaxis, Denies nasal congestion, Denies neck pain, Denies throat swelling and Denies tongue swelling Cardiovascular: Cardiovascular: Denies diaphoresis, Denies rapid heart rate, Denies edema, Denies irregular heart rhythm, Denies lightheadedness, Denies palpitations, Denies dyspnea and Denies dyspnea on exertion Respiratory: Respiratory: Denies chest congestion, Denies cough, Denies hemoptysis, Denies dyspnea and Denies dyspnea on exertion Gastrointestinal: Gastrointestinal: Denies abdominal pain, Denies melena, Denies hematochezia, Denies diarrhea, Denies nausea, Denies vomiting and Denies hematemesis Musculoskeletal: Musculoskeletal: Denies abnormal gait, Denies deformity, Denies joint swelling, Denies limited range of motion, Denies neck pain and Denies numbness Neurologic: Denies Abnormal speech present, Denies abnormal gait, Denies confusion, Denies dizziness, Denies headache(s), Denies focal weakness, Denies loss of vision, Denies numbness, Denies Other visual disturbances, Denies Sensory deficit (Neuro) and Denies weakness Psychiatric: Psychiatric: Denies confusion, Denies depression, Denies auditory hallucinations, Denies homicidal ideation and Denies suicidal ideation Endocrine: Endocrine: Denies cold intolerance, Denies excessive sweating, Denies fatigue, Denies heat intolerance and Denies palpitations Hematologic/Lymphatic: Hematologic/Lymphatic: Denies easy bleeding and Denies easy bruising Allergic/Immunologic: Allergic/Immunologic: Denies lip swelling, Denies throat swelling and Denies tongue swelling PMFSH Past Medical History Medical History CAD (coronary artery disease) states skips beats and then beats hard; not as often since on atenolol History of breast cancer History of fibromyalgia History of hypertension Port-A-Cath in place Surgical History Surgical History History of hysterectomy History of tonsillectomy
[2022-02-10 20:05] LABS: Hematocrit 38.4 % (37.0-47.0); Hemoglobin 12.5 g/dL (12.0-15.0); Mean Corpuscular HGB Conc 32.6 g/dl (32-36); Mean Corpuscular Hemoglobin 32.7 pg (26-34); Mean Corpuscular Volume 100.5 fl (80-100); Mean Platelet Volume 9.3 fl (7.4-10.4); Platelet Count Result 324 k/mm3 (150-375); Red Blood Count 3.82 M/mm3 (4.2-5.4); Red Cell Distribution Width 14.4 % (11.5-14.5); White Blood Count 45.3 K/mm3 (4.5-10.0)
[2022-02-10 20:28] LABS: Band Neutrophils Percent 6 % (0-6); Lymphocytes Absolute Manual 1.81 K/mm3 (1.1-4.5); Metamyelocytes Percent 4 %; Monocytes Percent Manual 2 % (3-9); Neutrophils Absolute Manual 40.77 K/mm3 (1.7-7.2); Neutrophils Percent Manual 84 % (46-73); Total Cells Counted 100
[2022-02-10 20:29] LABS: Platelet Estimate Adequate (Adequate)
[2022-02-10] MEDS: LACTATED RINGERS 1,000 ML 250 ML IV CONT (20:41)
[2022-02-10 20:43] LABS: Partial Thromboplastin Time 25.8 SECONDS (22.3-36.8)
[2022-02-10] MEDS: ONDANSETRON INJ 4 MG/2 ML VIAL IV PUSH (20:51)
[2022-02-10] MEDS: HYDROmorphone HCL INJ (*CRX) 1 MG/ML SYR 0.5 MG IV PUSH (20:51)
[2022-02-10 21:22] LABS: Alanine Aminotransferase 18 U/L (4-35); Albumin Level 3.9 g/dL (3.5-5.1); Alkaline Phosphatase 100 U/L (38-126); Anion Gap 5 mmol/L (8-16); Aspartate Amino Transferase 33 U/L (14-36); Bilirubin,Total 0.2 mg/dL (0.2-1.3); Blood Urea Nitrogen 10 mg/dL (7-17); Calcium 8.8 mg/dL (8.4-10.2); Carbon Dioxide 24 mmol/L (22-30); Chloride 99 mmol/L (98-107); Estimated CRCL calculation 47 ml/min; Estimated Glomerular Filt Rate > 60; Glucose 85 mg/dL (65-110); Lipase 130 U/L (23-300); Potassium 4.3 mmol/L (3.4-5.0); Sodium 128 mmol/L (137-145)
[2022-02-10 21:33] LABS: Troponin I < 0.012 ng/mL (0.000-0.034)
[2022-02-10] MEDS: PANTOPRAZOLE SODIUM IV 40 MG VIAL IV PUSH (22:48)
--- NOTE | 2022-02-10 23:16 | PC.NURSE ---
Care transferred to Clarence Varma RN.
[2022-02-11 00:23] LABS: Troponin I 0.012 ng/mL (0.000-0.034)
== END 2022-02-11 00:46 | disposition home or self-care (01) ==
PROVIDERS: Emergency Provider Emergency Medicine; PCP Family Medicine
DX: R07.89 Other chest pain (principal); K20.90 Esophagitis, unspecified without bleeding; C50.919 Malignant neoplasm of unspecified site of unspecified female breast; D72.829 Elevated white blood cell count, unspecified; I25.10 Atherosclerotic heart disease of native coronary artery without angina pectoris; M79.7 Fibromyalgia; I10 Essential (primary) hypertension; Z79.899 Other long term (current) drug therapy
CPT/HCPCS: 36415; 71046; 71275; 80053; 83690; 84484; 85025; 85610; 85730; 93005; 96361; 96374; 96375; 99284; C9113; J1170; J2405; J7120; Q9967

== ENCOUNTER 2022-03-17 05:02 | Emergency (ER) | payer MEDICARE, SELFPAY ==
--- NOTE | ~2022-03-17 | XR_ITS ---
EXAMINATION: XR abdomen/kub 1V DATE: 03/17/2022 06:04 INDICATION: Constipation. TECHNIQUE: A supine view of the abdomen was obtained. COMPARISON: Abdomen radiograph 01/13/2022 FINDINGS: There are no dilated loops of bowel. There is a moderate volume of stool in the colon. IMPRESSION: 1. Nonobstructive bowel gas pattern. Reviewed, dictated and finalized at location A.
[2022-03-17 05:06] VITALS: BP 163/101; PULSE 107; RESP 18; TEMP 36.7; O2SAT 97
--- NOTE | 2022-03-17 05:12 | ED.GENADULT ---
HPI - General Adult General Chief complaint: Nausea/Vomiting/Diarrhea Stated complaint: chemo, constipated, sweats, dry heaves Time Seen by Provider: 03/17/22 05:05 Source: patient Mode of arrival: ambulatory Limitations: no limitations History of Present Illness HPI narrative: Pt presents with constipation and dry heaves and swets. Pt had chemo 4 days ago and has not been able to move bowels since. Pt says this same thing happens after chemo every time. Pt has tried OTC stool softeners and an enema without results. Pain Consistency: intermittent Relieving factors: none Exacerbating factors: none Associated symptoms: nausea/vomiting Related Data Home Medications Medication Instructions Recorded Confirmed atenolol 25 mg PO QAM 04/08/20 05/09/21 ufnvizgdfl-zuslcwq-ozjbbjec 1 cap PO PRN PRN 04/08/20 05/09/21 Reliv 1 scoop/day BYMOUTH DAILY 04/19/20 05/09/21 vitamin B complex 1 cap QAM 04/19/20 05/09/21 carboxymethylcellulose sodium 1 drp EACH EYE BID 04/28/21 05/09/21 [Refresh] cyclosporine [Restasis] 1 drp EACH EYE Q12H 04/28/21 05/09/21 lisinopril 20 mg PO DAILY 05/09/21 05/09/21 Allergies Allergy/AdvReac Type Severity Reaction Status Date / Time prednisone Allergy Severe SHAKINESS Verified 03/17/22 05:15 tramadol Allergy Unknown Vomiting Verified 03/17/22 05:15 cefprozil AdvReac Unknown SEVERE Verified 03/17/22 05:15 VOMITING topiramate AdvReac Unknown SEVERE Verified 03/17/22 05:15 VOMITING venlafaxine AdvReac Unknown SEVERE Verified 03/17/22 05:15 VOMITING Review of Systems Review of Systems: All systems reviewed & are unremarkable except as noted in HPI and below PMFSH Past Medical History Medical History CAD (coronary artery disease) states skips beats and then beats hard; not as often since on atenolol History of breast cancer History of fibromyalgia History of hypertension Port-A-Cath in place Surgical History Surgical History History of hysterectomy History of tonsillectomy Social History Social History Smoking status: Never smoker Second hand tobacco smoke exposure: No Alcohol intake: never Substance use: never Substance use type: does not use Spiritual care concerns: No Exam Const: General: no acute distress Orientation/consciousness: patient oriented x3 Neck: Neck: normal visual inspection, no lymphadenopathy and no meningeal signs Chest: Chest palpation & inspection: normal inspection of the chest Resp: Effort & Inspection: normal respiratory effort Auscultation: clear to auscultation bilaterally Cardio: Rate: regular rate Rhythm: regular rhythm GI: GI Palp: Yes Soft to palpation and Yes Tenderness to palpation present (GI) (minimal generalized) Auscultation: normal bowel sounds Neuro: General: patient oriented x3, moves all extremities, no meningeal signs and no focal motor deficits Speech: normal speech Extrem: General: normal to inspection and no clubbing, cyanosis or edema Course Vital Signs Vital signs: Vital Signs Temperature 98.1 F 03/17/22 05:06 Pulse Rate 107 H 03/17/22 05:06 Respiratory Rate 18 03/17/22 05:06 Blood Pressure 163/101 H 03/17/22 05:06 Pulse Oximetry 97 03/17/22 05:06 Temperature 98.1 F 03/17/22 05:06 Pulse Rate 87 03/17/22 06:34 Respiratory Rate 16 03/17/22 06:34 Blood Pressure 132/59 L 03/17/22 06:34 Pulse Oximetry 100 03/17/22 06:34 Medical Decision Making Vital Signs Vital Signs: Vital Signs Temperature 98.1 F 03/17/22 05:06 Pulse Rate 107 H 03/17/22 05:06 Respiratory Rate 18 03/17/22 05:06 Blood Pressure 163/101 H 03/17/22 05:06 Pulse Oximetry 97 03/17/22 05:06 Temperature 98.1 F 03/17/22 05:06 Pulse Rate 87 03/17/22 06:34 Respiratory Rate 16 03/17/22 06:34 Blood Pressure
[2022-03-17] MEDS: SODIUM CHLORIDE 0.9% IV 1,000 ML 999 ML IV CONT (05:20)
[2022-03-17] MEDS: ONDANSETRON INJ 4 MG/2 ML VIAL IV PUSH (05:21)
[2022-03-17 05:28] LABS: Hematocrit 35.1 % (37.0-47.0); Hemoglobin 11.6 g/dL (12.0-15.0); Immature Platelet Fraction Pct 4.7 % (0.9-11.2); Mean Corpuscular Hemoglobin 32.5 pg (26-34); Mean Corpuscular Volume 98.3 fl (80-100); Mean Platelet Volume 10.7 fl (7.4-10.4); Platelet Count Result 142 k/mm3 (150-375); Red Blood Count 3.57 M/mm3 (4.2-5.4); Red Cell Distribution Width 16.3 % (11.5-14.5)
[2022-03-17 05:35] LABS: Alanine Aminotransferase 17 U/L (4-35); Albumin Level 3.7 g/dL (3.5-5.1); Alkaline Phosphatase 82 U/L (38-126); Anion Gap 6 mmol/L (8-16); Aspartate Amino Transferase 30 U/L (14-36); Bilirubin,Total 0.9 mg/dL (0.2-1.3); Blood Urea Nitrogen 8 mg/dL (7-17); Calcium 8.1 mg/dL (8.4-10.2); Carbon Dioxide 25 mmol/L (22-30); Chloride 96 mmol/L (98-107); Estimated CRCL calculation 69 ml/min; Estimated Glomerular Filt Rate > 60; Glucose 115 mg/dL (65-110); Lipase 64 U/L (23-300); Potassium 3.6 mmol/L (3.4-5.0); Sodium 127 mmol/L (137-145)
[2022-03-17 05:39] LABS: Band Neutrophils Percent 3 % (0-6); Lymphocytes Absolute Manual 1.24 K/mm3 (1.1-4.5); Monocytes Absolute Manual 0.62 K/mm3 (0.1-0.90); Monocytes Percent Manual 2 % (3-9); Neutrophils Absolute Manual 29.14 K/mm3 (1.7-7.2); Neutrophils Percent Manual 91 % (46-73); Total Cells Counted 100
[2022-03-17 05:40] LABS: Anisocytosis 2+ (NORMAL); Ovalocytes 1+ (NORMAL); Poikilocytosis 1+ (NORMAL)
[2022-03-17 06:34] VITALS: BP 132/59; PULSE 87; RESP 16; O2SAT 100
[2022-03-17 07:11] VITALS: BP 137/71; PULSE 94; RESP 18; O2SAT 98
== END 2022-03-17 07:23 | disposition home or self-care (01) ==
PROVIDERS: Emergency Provider Emergency Medicine; PCP Family Medicine
DX: K59.00 Constipation, unspecified (principal); I25.10 Atherosclerotic heart disease of native coronary artery without angina pectoris; M79.7 Fibromyalgia; I10 Essential (primary) hypertension; Z85.3 Personal history of malignant neoplasm of breast; Z90.710 Acquired absence of both cervix and uterus; Z90.89 Acquired absence of other organs
CPT/HCPCS: 36415; 74018; 80053; 83690; 85025; 85055; 96361; 96374; 99284; J2405; J7030

== ENCOUNTER 2023-09-11 16:05 | Emergency (ER) | payer MEDICARE, SELFPAY ==
[2023-09-11] VITALS (15 sets, daily range): BP systolic 123–167; BP diastolic 69–100; PULSE 57–86; RESP 13–30; TEMP 36.9; O2SAT 79–100
--- NOTE | 2023-09-11 16:06 | ECG_ITS ---
Measurements Intervals [place] Rate: 64 P: 32 [place]: 167 QRS: -20 QRSD: 78 T: 35 QT: 372 QTc: 386 Interpretive Statements SINUS RHYTHM POSSIBLE RIGHT VENTRICULAR CONDUCTION DELAY [RSR (QR) IN V1/V2] OTHERWISE NORMAL ECG COMPARED TO ECG 02/10/2022 19:36:25 NO SIGNIFICANT CHANGES Electronically Signed On 09-12-2023 8:22:18 CDT by Grant Sawyer M.D.
[2023-09-11 16:52] LABS: Basophils Absolute Auto 0.1 K/mm3 (0.0-0.1); Eosinophils Absolute Auto 0.1 K/mm3 (0-0.3); Eosinophils Percent Auto 1.6 % (0-4.4); Hemoglobin 12.1 g/dL (12.0-15.0); Immature Granulocyte Absolute 0.01 K/mm3 (0.00-0.031); Immature Granulocyte Percent A 0.2 % (0-0.5); Lymphocytes Absolute Auto 1.34 K/mm3 (0.9-3.2); Mean Corpuscular HGB Conc 32.7 g/dl (32-36); Mean Corpuscular Hemoglobin 32.6 pg (26-34); Mean Corpuscular Volume 99.7 fl (80-100); Monocytes Absolute Auto 0.7 K/mm3 (0.1-0.6); Monocytes Percent Auto 14.3 % (2.6-8.5); Neutrophils Absolute Auto 2.9 K/mm3 (1.3-6.7); Neutrophils Percent Auto 56.9 % (45.5-73.1); Platelet Count Result 254 k/mm3 (150-375); Red Blood Count 3.71 M/mm3 (4.2-5.4); Red Cell Distribution Width 13.2 % (11.5-14.5); White Blood Count 5.2 K/mm3 (4.5-10.0)
[2023-09-11 17:02] LABS: Alanine Aminotransferase 18 U/L (6-35); Albumin Level 4.1 g/dL (3.5-5.1); Alkaline Phosphatase 53 U/L (38-126); Anion Gap 4 mmol/L (8-16); Aspartate Amino Transferase 28 U/L (14-36); Bilirubin,Total 0.4 mg/dL (0.2-1.3); Blood Urea Nitrogen 17 mg/dL (7-17); Calcium 8.8 mg/dL (8.4-10.2); Carbon Dioxide 27 mmol/L (22-30); Chloride 95 mmol/L (98-107); Estimated CRCL calculation 49 ml/min; Estimated Glomerular Filt Rate > 60; Glucose 84 mg/dL (65-110); Magnesium 2.4 mg/dL (1.6-2.3); Potassium 4.1 mmol/L (3.4-5.0); Sodium 126 mmol/L (137-145)
--- NOTE | 2023-09-11 17:39 | ED.ARRPALP ---
HPI - Arrhythmia/Palpitations General Chief Complaint: Arrhythmia/Palpitations Stated Complaint: arrythmia Time Seen by Provider: 09/11/23 16:15 History of Present Illness HPI narrative: Patient is an 78-year-old female who presents to the ER with palpitations. Ongoing for several years. Feels like her heart skips a beat. Occasionally she will get lightheaded with this. No chest pain or chest pressure. She takes atenolol 25 mg. Denies caffeine usage or alcohol usage. Recently had a Holter monitor which was turned in but has not received the results. Related Data Home Medications Medication Instructions Recorded Confirmed Reliv 1 scoop/day BYMOUTH DAILY 04/19/20 04/29/23 vitamin B complex 1 cap QAM 04/19/20 04/29/23 cyclosporine 0.05 % eye drops in a 1 drp EACH EYE Q12H 04/28/21 04/29/23 dropperette (Restasis) fluorometholone acetate 0.1 % eye 1 drp EACH EYE Q4H 01/06/23 04/29/23 drops,suspension (Flarex) [id number] 50 1 cap PO Q6H PRN 04/29/23 04/29/23 mg-325 mg-40 mg capsule cholecalciferol (vitamin D3) 10 10 mcg PO DAILY 04/29/23 04/29/23 mcg (400 unit) capsule Allergies Allergy/AdvReac Type Severity Reaction Status Date / Time prednisone Allergy Severe SHAKINESS Verified 09/11/23 16:07 tramadol Allergy Unknown Vomiting Verified 09/11/23 16:07 cefprozil AdvReac Unknown SEVERE Verified 09/11/23 16:07 VOMITING topiramate AdvReac Unknown SEVERE Verified 09/11/23 16:07 VOMITING venlafaxine AdvReac Unknown SEVERE Verified 09/11/23 16:07 VOMITING Review of Systems Review of Systems: All systems reviewed & are unremarkable except as noted in HPI and below Constitutional: Constitutional: Denies chills, Denies fatigue and Denies fever(s) ENT: Denies nasal congestion and Denies sore throat Cardiovascular: Cardiovascular: Denies chest pain, Denies rapid heart rate and Denies radiating jaw, neck or arm pain Comments: Palpitations Respiratory: Respiratory: Denies cough and Denies dyspnea Gastrointestinal: Gastrointestinal: Denies abdominal pain, Denies nausea and Denies vomiting [facility] Past Medical History Medical History Age-related osteoporosis without current pathological fracture Atherosclerosis of aorta Chronic migraine without aura, intractable, without status migrainosus Disorder of adrenal gland, unspecified Essential (primary) hypertension Fibromyalgia History of basal cell carcinoma History of breast cancer Mild atherosclerosis of both carotid arteries 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 Vitamin D deficiency, unspecified Surgical History Surgical History H/O local excision of skin lesion basal cell carcinoma right upper lip H/O partial mastectomy right 07/18/2018 History of bladder suspension procedure 12/2012 History of carpal tunnel release right 12/27/2014 History of hysterectomy History of tonsillectomy Family History Family History (Updated 07/14/23 @ 18:02 by CATE Horne) Father Acute myocardial infarction Heart disease Mother Carcinoma of colon Hypertension Aortic stenosis Osteoporosis Grandparent Cerebrovascular accident Cancer Social History Social History (Updated 07/14/23 @ 13:08 by Tiara Alva MA) Smoking status: Never smoker Second hand tobacco smoke exposure: No Alcohol intake: never Substance use: never Substance use type: does not use Lack of Transportation: No Lack of Food: Never True Current Housing: I Have Housing Concerned About Future Housing: No Difficulty Paying Gas/Electric Bills: No Difficulty Paying for Meds: No Currently Unemployed: No Education: Trade/Vocational Certificate Difficulty w/ Childcare or Family Care: No Living arrangements: with family [place]
== END 2023-09-11 18:03 | disposition home or self-care (01) ==
PROVIDERS: Emergency Provider Emergency Medicine; PCP Family Medicine
DX: R00.2 Palpitations (principal); E87.1 Hypo-osmolality and hyponatremia; I70.0 Atherosclerosis of aorta; I10 Essential (primary) hypertension; I65.23 Occlusion and stenosis of bilateral carotid arteries; E55.9 Vitamin D deficiency, unspecified; M81.0 Age-related osteoporosis without current pathological fracture; M79.7 Fibromyalgia; G43.909 Migraine, unspecified, not intractable, without status migrainosus; Z85.828 Personal history of other malignant neoplasm of skin; Z85.3 Personal history of malignant neoplasm of breast; Z90.11 Acquired absence of right breast and nipple; Z90.710 Acquired absence of both cervix and uterus; R94.31 Abnormal electrocardiogram [ECG] [EKG]
CPT/HCPCS: 36415; 80053; 83735; 85025; 93005; 99283

== ENCOUNTER 2023-09-23 09:40 | Emergency (ER) | payer MEDICARE, SELFPAY ==
[2023-09-23] VITALS (9 sets, daily range): BP systolic 128–180; BP diastolic 75–98; PULSE 56–79; RESP 12–20; TEMP 36.4; O2SAT 99–100
--- NOTE | 2023-09-23 09:41 | ECG_ITS ---
Measurements Intervals [place] Rate: 73 P: 27 [place]: 167 QRS: -39 QRSD: 80 T: 39 QT: 351 QTc: 388 Interpretive Statements SINUS RHYTHM LEFT AXIS DEVIATION BORDERLINE ST ABNORMALITY- LATERAL LEADS BASELINE ARTIFACT- II, III, AVR, V5-V6 BORDERLINE ECG COMPARED TO ECG 09/11/2023 16:12:58 LEFT-AXIS DEVIATION NOW PRESENT ST (T WAVE) DEVIATION NOW PRESENT Electronically Signed On 09-23-2023 9:59:12 CDT by Bridger Ramos D.O.
[2023-09-23 10:24] LABS: Basophils Percent Auto 0.8 % (0.2-1.2); Eosinophils Absolute Auto 0.1 K/mm3 (0-0.3); Hematocrit 42.4 % (37.0-47.0); Hemoglobin 13.7 g/dL (12.0-15.0); Immature Granulocyte Absolute 0.01 K/mm3 (0.00-0.031); Immature Granulocyte Percent A 0.2 % (0-0.5); Lymphocytes Absolute Auto 1.05 K/mm3 (0.9-3.2); Lymphocytes Percent Auto 20.6 % (18.3-44.2); Mean Corpuscular HGB Conc 32.3 g/dl (32-36); Mean Corpuscular Hemoglobin 32.6 pg (26-34); Monocytes Absolute Auto 0.6 K/mm3 (0.1-0.6); Monocytes Percent Auto 12.6 % (2.6-8.5); Neutrophils Absolute Auto 3.3 K/mm3 (1.3-6.7); Neutrophils Percent Auto 64.8 % (45.5-73.1); Platelet Count Result 251 k/mm3 (150-375); Red Cell Distribution Width 13.2 % (11.5-14.5); White Blood Count 5.1 K/mm3 (4.5-10.0)
[2023-09-23 10:34] LABS: INR 0.9; Prothrombin Time 12.6 Seconds (11.1-14.7)
[2023-09-23 11:22] LABS: Alanine Aminotransferase 18 U/L (6-35); Albumin Level 4.2 g/dL (3.5-5.1); Alkaline Phosphatase 49 U/L (38-126); Anion Gap 5 mmol/L (8-16); Aspartate Amino Transferase 29 U/L (14-36); Bilirubin,Total 0.6 mg/dL (0.2-1.3); Blood Urea Nitrogen 10 mg/dL (7-17); Carbon Dioxide 24 mmol/L (22-30); Chloride 97 mmol/L (98-107); Estimated CRCL calculation 48 ml/min; Estimated Glomerular Filt Rate > 60; Glucose 76 mg/dL (65-110); Magnesium 2.5 mg/dL (1.6-2.3); Potassium 4.6 mmol/L (3.4-5.0); Sodium 126 mmol/L (137-145)
[2023-09-23 11:32] LABS: NT Pro B Type Natriuretic Pept 353 pg/mL (19.9-100); Troponin I < 0.012 ng/mL (0.000-0.034)
--- NOTE | 2023-09-23 12:03 | ED.ARRPALP ---
HPI - Arrhythmia/Palpitations General Chief Complaint: Arrhythmia/Palpitations Stated Complaint: heart is doing flip flops Time Seen by Provider: 09/23/23 10:04 Source: patient and family Mode of arrival: ambulatory Limitations: no limitations History of Present Illness HPI narrative: 78-year-old with a history of hypertension here with complaints of having intermittent palpitations for past few weeks. Patient states that it is either mostly in the morning or in the night. She also had a 40-hour Holter monitor and was told by her primary doctor that she needs to follow-up with cardiology. Patient states this morning she was at the boiler operator office and was unable to see the boiler operator as she did not have any appointment. She presently denies having any chest pain, palpitations or lightheadedness or dizziness or shortness of breath. complaint: skipped beats Onset (ago): week(s) Duration: intermittent Severity: moderate Associated symptoms: denies other symptoms Related Data Home Medications Medication Instructions Recorded Confirmed Reliv 1 scoop/day BYMOUTH DAILY 04/19/20 09/21/23 vitamin B complex 1 cap QAM 04/19/20 09/21/23 cyclosporine 0.05 % eye drops in a 1 drp EACH EYE Q12H 04/28/21 09/21/23 dropperette (Restasis) fluorometholone acetate 0.1 % eye 1 drp EACH EYE Q4H 01/06/23 09/21/23 drops,suspension (Flarex) [id number] 50 1 cap PO Q6H PRN Pain, Mild 04/29/23 09/21/23 mg-325 mg-40 mg capsule cholecalciferol (vitamin D3) 10 10 mcg PO DAILY 04/29/23 09/21/23 mcg (400 unit) capsule Allergies Allergy/AdvReac Type Severity Reaction Status Date / Time prednisone Allergy Severe SHAKINESS Verified 09/23/23 09:49 tramadol Allergy Unknown Vomiting Verified 09/23/23 09:49 cefprozil AdvReac Unknown SEVERE Verified 09/23/23 09:49 VOMITING topiramate AdvReac Unknown SEVERE Verified 09/23/23 09:49 VOMITING venlafaxine AdvReac Unknown SEVERE Verified 09/23/23 09:49 VOMITING Review of Systems Review of Systems: All systems reviewed & are unremarkable except as noted in HPI and below Constitutional: Constitutional: Reports no additional constitutional complaints Eyes: Eyes: Reports no additional eye complaints ENT: Reports system reviewed and no additional complaints, except as documented Cardiovascular: Cardiovascular: Reports as per HPI Respiratory: Respiratory: Reports no additional respiratory complaints Gastrointestinal: Gastrointestinal: Reports no additional gastrointestinal complaints Genitourinary: Genitourinary: Reports no additional female genitourinary complaints PMFSH Past Medical History Medical History Age-related osteoporosis without current pathological fracture Atherosclerosis of aorta Chronic migraine without aura, intractable, without status migrainosus Disorder of adrenal gland, unspecified Essential (primary) hypertension Fibromyalgia History of basal cell carcinoma History of breast cancer Mild atherosclerosis of both carotid arteries 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
== END 2023-09-23 12:26 | disposition home or self-care (01) ==
PROVIDERS: Emergency Provider Family Medicine; PCP Family Medicine
DX: R00.2 Palpitations (principal); I10 Essential (primary) hypertension; I70.0 Atherosclerosis of aorta; I65.23 Occlusion and stenosis of bilateral carotid arteries; E55.9 Vitamin D deficiency, unspecified; M79.7 Fibromyalgia; M81.0 Age-related osteoporosis without current pathological fracture; Z85.828 Personal history of other malignant neoplasm of skin; Z85.3 Personal history of malignant neoplasm of breast; Z85.858 Personal history of malignant neoplasm of other endocrine glands; Z90.11 Acquired absence of right breast and nipple; Z90.710 Acquired absence of both cervix and uterus; R94.31 Abnormal electrocardiogram [ECG] [EKG]
CPT/HCPCS: 36415; 80053; 83735; 83880; 84484; 85025; 85610; 93005; 99284

== ENCOUNTER 2023-11-09 10:17 | Outpatient (CLI) | payer MEDICARE, SELFPAY | END 2023-11-09 10:18 | disposition home or self-care (01) | LOC: ANHLAB 10:20 | PROVIDERS: PCP Family Medicine; Visit Provider Internal Medicine | DX: R00.2 Palpitations (principal) | CPT/HCPCS: 36415; 84443 ==

== ENCOUNTER 2025-09-20 16:25 | Emergency (ER) | payer MEDICARE, SELFPAY ==
[2025-09-20 16:41] VITALS: BP 153/76; PULSE 76; RESP 18; TEMP 36.2; O2SAT 99
--- NOTE | 2025-09-20 16:48 | ED.URI ---
HPI - URI/Sore Throat General Chief Complaint: Upper Respiratory Infection Stated Complaint: Flu Like Time Seen by Provider: 09/20/25 16:48 Source: patient Mode of arrival: ambulatory Limitations: no limitations History of Present Illness HPI Narrative: 80-year-old female presents with complaint of body aches, fatigue, chills , nausea for 5-6 days. Patient wants viral swabs. Was seen at [facility] cancer clinic for a biopsy and at that time they did viral soaps. Called her today and told her that she did the swabs Wrong. Patient also reports back pain, or suprapubic cramping, frequency and dysuria starting today. Saw her primary care physician and was told she has a urinary tract infection. Was prescribed Macrobid but has not started antibiotic. no vomiting. Afebrile. Patient on oral chemo for breast cancer. All systems reviewed and negative except as above. Related Data Home Medications ?Medication ?Instructions ?Recorded ?Confirmed ?Last Taken ?Type Reliv 1 scoop/day BYMOUTH DAILY 04/19/20 05/22/25 04/23/20 20:00 History vitamin B complex 1 cap QAM 04/19/20 11/17/24 04/23/20 20:00 History cyclosporine 0.05 % eye drops in a 1 drp EACH EYE Q12H 04/28/21 05/22/25 Unknown History dropperette (Restasis) letrozole 2.5 mg tablet 2.5 mg PO DAILY 11/17/24 05/22/25 Unknown History metoprolol succinate 100 mg 100 mg PO .COMPLEX 11/17/24 05/22/25 Unknown History tablet,extended release 24 hr palbociclib 75 mg tablet (Ibrance) mg PO 05/22/25 05/22/25 Unknown History Allergies Allergy/AdvReac Type Severity Reaction Status Date / Time prednisone AdvReac Severe SHAKINESS Verified 09/20/25 16:39 cefprozil AdvReac Unknown SEVERE Verified 09/20/25 16:39 VOMITING topiramate AdvReac Unknown SEVERE Verified 09/20/25 16:39 VOMITING tramadol AdvReac Unknown Vomiting Verified 09/20/25 16:39 venlafaxine AdvReac Unknown SEVERE Verified 09/20/25 16:39 VOMITING PMFSH Past Medical History Medical History Paroxysmal supraventricular tachycardia Moderate protein-calorie malnutrition 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 History of basal cell carcinoma Mild atherosclerosis of both carotid arteries Essential (primary) hypertension Disorder of adrenal gland, unspecified Atherosclerosis of aorta Age-related osteoporosis without current pathological fracture Vitamin D deficiency, unspecified Chronic migraine without aura, intractable, without status migrainosus Fibromyalgia History of breast cancer Surgical History Surgical History H/O partial mastectomy right 07/18/2018 History of carpal tunnel release right 12/27/2014 History of bladder suspension procedure 12/2012 H/O local excision of skin lesion basal cell carcinoma right upper lip History of tonsillectomy History of hysterectomy Family History Family History Father Acute myocardial infarction Heart disease Mother Carcinoma of colon Hypertension Aortic stenosis Osteoporosis Grandparent Cerebrovascular accident Cancer Social History Social History Smoking status: Never smoker Second hand tobacco smoke exposure: No Alcohol intake: never Substance use: never Substance use type: does not use Do You Feel Safe in your Home?: Yes Lack of Transportation: No Lack of Food: Never True Current Housing: I Have Housing Concerned About Future Housing: No Difficulty Paying Gas/Electric Bills: No Difficulty Paying for Meds: No Currently Unemployed: No Education: Trade/Vocational Certificate Difficulty w/ Childcare or Family Care: No Living arrangements: with family Occupation/Education: retired Gender identity (if verbalized by the patient): Female Sexual Orientation (if Verbalized by the Patient): Straight or Heterosexual Spiritual care concerns: No Comments At time of signature, agree with nursing past medical, surgical, social and family history. There is no relevant family history pertinent to the presenting complaint. Exam Narrative: GENERAL: This is a well-nourished, well-developed patient, in no apparent distress. HEAD: normocephalic, atraumatic. EYES: PERRL. Sclera clear/white. Vision is grossly intact. EARS: External ears normal, auditory canals clear and without drainage, TMs normal without perforation. Hearing grossly intact. NOSE: External nose normal with no obvious nasal discharge, nares without redness, no rhinorrhea. THROAT: Mucous membranes moist, posterior pharynx clear. NECK: Neck supple, non-tender without lymphadenopathy, masses or thyromegaly. CARDIOVASCULAR: Regular rate and rhythm without murmurs, gallops, or rubs. RESPIRATORY: Clear to auscultation. Breath sounds equal bilaterally. No wheezes, rales, or rhonchi. SKIN: warm, Dry, intact with no suspicious lesions or rash, good texture and turgor. NEURO: awake, alert, and oriented to person, place and time. There were no obvious focal neurologic abnormalities. EXTREMITIES: No joint tenderness, effusion, or edema noted. Course Course Level of Care: Express Care Visit Vital Signs Vital signs: Vital Signs Temperature 36.2 C L 09/20/25 16:41 Pulse Rate 76 09/20/25 16:41 Respiratory Rate 18 09/20/25 16:41 Blood Pressure 153/76 H 09/20/25 16:41 Pulse Oximetry 99 09/20/25 16:41 Oxygen Delivery Room Air 09/20/25 16:41 Temperature 36.2 C L 09/20/25 16:41 Pulse Rate 76 09/20/25 16:41 Respiratory Rate 18 09/20/25 16:41 Blood Pressure 153/76 H 09/20/25 16:41 Pulse Oximetry 99 09/20/25 16:41 Oxygen Delivery Room Air 09/20/25 16:41 Reviewed MDM - URI/Sore Throat MDM Narrative Medical decision making narrative: negative COVID and influenza. Explain to patient that her symptoms are most likely related to urinary tract infection. Recommend she start Macrobid today. Will follow-up with her primary care physician as needed. Patient is alert, nontoxic. Lab Data Labs: Lab Results 09/20/25 Range/Units 17:06 POC Influenza A Ag Negative (Negative) POC Influenza B Ag Negative (Negative) POC SARS CoV-2 Ag Negative (Negative) Discharge Plan Discharge Clinical Impression: Urinary tract infection Patient Disposition: Home Condition: Stable Instructions: Antibiotic Form, Urinary Tract Infection in Women (ED) Additional Instructions: your COVID and influenza test was negative today. Your fatigue and body aches are most likely Cause from urinary tract infection that your primary care physician is currently treating you for. Start Macrobid today. Follow-up with your primary care physician if not improving. Patient Language: Sami Prescriptions: No Action Relaxium 1 tablet PO QHS Qty: 100 0RF metoprolol succinate 100 mg tablet extended release 24 hr 100 mg PO .COMPLEX Rx Instructions: 1/2 tablet every morning and 1 tablet every evening letrozole 2.5 mg tablet 2.5 mg PO DAILY nitrofurantoin macrocrystal 100 mg capsule 100 mg PO Q12H 5 Days Qty: 10 0RF Rx Instructions: must administer with a meal/food Ibrance 75 mg tablet PO vitamin B complex Capsule 1 cap QAM Reliv 1 scoop/day BYMOUTH DAILY cyclosporine [Restasis] 0.05 % Dropperette 1 drp EACH EYE Q12H Follow-up/Referrals: Anirudh Crowley MD [Primary Care Provider, Family Practice] Time of Disposition: 17:00
[2025-09-20 17:08] LABS: EDCOVIDSCREEN Negative (Negative); EDINFLUASCREEN Negative (Negative); EDINFLUBSCREEN Negative (Negative)
== END 2025-09-20 17:08 | disposition home or self-care (01) ==
PROVIDERS: Emergency Provider Nurse Practitioner Family; PCP Family Medicine
DX: N39.0 Urinary tract infection, site not specified (principal); C50.919 Malignant neoplasm of unspecified site of unspecified female breast; Z20.822 Contact with and (suspected) exposure to COVID-19
CPT/HCPCS: 87426; 87804; 99212; G0463

== ENCOUNTER 2025-10-06 18:08 | Emergency (ER) | payer MEDICARE, SELFPAY ==
--- NOTE | ~2025-10-06 | XR_ITS ---
Examination: XR chest 1V portable Clinical History: Covid Comparison: 02/10/2022 20 Technique: Portable AP Findings: Patient rotated. Heart size normal. Eventration right hemidiaphragm, with associated basilar atelectasis and/or scarring. No acute bony abnormality. IMPRESSION: 1. No acute cardiopulmonary findings given portable technique. Reviewed, dictated and finalized at location R. L [facility]
[2025-10-06 18:10] VITALS: BP 139/78; PULSE 68; RESP 18; TEMP 37.1; O2SAT 97
[2025-10-06 18:57] LABS: Add Urine Microscopic? YES; Appearance Urine Clear (Clear); Glucose Urine UA Negative (Negative); Leukocyte Esterase Ur Negative LEU/UL (Negative); Nitrate Urine Negative (Negative); Non Pathogenic Casts 0-2; Specific Grav Ur 1.021 (1.001-1.035)
[2025-10-06 19:28] LABS: Influenza A QL RT-PCR Negative (Negative); Influenza B QL RT-PCR Negative (Negative); RSV RNA, RT-PCR Negative (Negative); SARS-CoV-2 RNA PCR Positive (Negative)
--- NOTE | 2025-10-06 19:34 | ECG_ITS ---
Test Date: 2025-10-06 20:05:51 Measurements Intervals [place] Rate: 72 P: 49 [place]: 178 QRS: -22 QRSD: 73 T: 53 QT: 377 QTc: 414 Interpretive Statements SINUS RHYTHM SEPTAL MYOCARDIAL INFARCTION , OF INDETERMINATE AGE Electronically Signed On 10-07-2025 09:57:32 [employer] by James Koroma D.O
[2025-10-06 20:10] LABS: Hematocrit 34.1 % (37.0-47.0); Hemoglobin 11.6 g/dL (12.0-15.0); Mean Corpuscular HGB Conc 34.0 g/dl (32-36); Mean Corpuscular Hemoglobin 36.0 pg (26-34); Mean Corpuscular Volume 105.9 fl (80-100); Platelet Count Result 211 k/mm3 (150-375); Red Blood Count 3.22 M/mm3 (4.2-5.4); White Blood Count 3.4 K/mm3 (4.5-10.0)
[2025-10-06 20:19] LABS: Alanine Aminotransferase 21 U/L (6-35); Albumin Level 3.9 g/dL (3.5-5.1); Alkaline Phosphatase 36 U/L (38-126); Anion Gap 6 mmol/L (4-12); Aspartate Amino Transferase 37 U/L (14-36); Bilirubin,Total 0.4 mg/dL (0.2-1.3); Blood Urea Nitrogen 9 mg/dL (7-17); Calcium 8.4 mg/dL (8.4-10.2); Carbon Dioxide 23 mmol/L (22-30); Chloride 94 mmol/L (98-107); Estimated CRCL calculation 47 ml/min; Estimated Glomerular Filt Rate > 60; Glucose 95 mg/dL (65-110); Potassium 4.1 mmol/L (3.4-5.0); Sodium 123 mmol/L (137-145); Total Protein 6.4 g/dL (6.3-8.2)
[2025-10-06 20:42] LABS: Band Neutrophils Percent 8 % (0-6); Basophils Absolute Manual 0.06 K/mm3 (0.0-0.1); Basophils Percent Manual 2 % (0-1); Lymphocytes Absolute Manual 0.37 K/mm3 (1.1-4.5); Lymphocytes Percent Manual 11.0 % (18-44); Monocytes Absolute Manual 0.44 K/mm3 (0.1-0.90); Monocytes Percent Manual 13 % (3-9); Neutrophils Absolute Manual 2.51 K/mm3 (1.3-6.7); Neutrophils Percent Manual 66 % (46-73); Total Cells Counted 100
[2025-10-06 20:43] LABS: Anisocytosis 1+; Ovalocytes 1+
[2025-10-06 20:44] LABS: Burr Cells 1+; Schistocytes None Seen; Smudge Cells PRESENT
--- NOTE | 2025-10-06 20:53 | ED.GENADULT ---
HPI - General Adult General Chief complaint: Urogenital-Female Stated complaint: I think i have a UTI nausea, urinary frequency Time Seen by Provider: 10/06/25 18:42 History of Present Illness HPI narrative: This is a 80-year-old female presenting with URI symptoms. Patient says she has been having headaches, not feeling well overall and body aches. She denies chest pain, shortness of breath abdominal pain nausea vomiting or diarrhea. She does not have urinary symptoms. She has been taking Tylenol with some relief. Her just got over a viral illness. Related Data Home Medications ?Medication ?Instructions ?Recorded ?Confirmed ?Last Taken ?Type Reliv 1 scoop/day BYMOUTH DAILY 04/19/20 05/22/25 04/23/20 20:00 History vitamin B complex 1 cap QAM 04/19/20 11/17/24 04/23/20 20:00 History cyclosporine 0.05 % eye drops in a 1 drp EACH EYE Q12H 04/28/21 05/22/25 Unknown History dropperette (Restasis) letrozole 2.5 mg tablet 2.5 mg PO DAILY 11/17/24 05/22/25 Unknown History metoprolol succinate 100 mg 100 mg PO .COMPLEX 11/17/24 05/22/25 Unknown History tablet,extended release 24 hr palbociclib 75 mg tablet (Ibrance) mg PO 05/22/25 05/22/25 Unknown History Allergies Allergy/AdvReac Type Severity Reaction Status Date / Time prednisone AdvReac Severe SHAKINESS Verified 09/20/25 16:39 cefprozil AdvReac Unknown SEVERE Verified 09/20/25 16:39 VOMITING topiramate AdvReac Unknown SEVERE Verified 09/20/25 16:39 VOMITING tramadol AdvReac Unknown Vomiting Verified 09/20/25 16:39 venlafaxine AdvReac Unknown SEVERE Verified 09/20/25 16:39 VOMITING PMFSH Past Medical History Medical History Paroxysmal supraventricular tachycardia Moderate protein-calorie malnutrition 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 History of basal cell carcinoma Mild atherosclerosis of both carotid arteries Essential (primary) hypertension Disorder of adrenal gland, unspecified Atherosclerosis of aorta Age-related osteoporosis without current pathological fracture Vitamin D deficiency, unspecified Chronic migraine without aura, intractable, without status migrainosus Fibromyalgia History of breast cancer Surgical History Surgical History H/O partial mastectomy right 07/18/2018 History of carpal tunnel release right 12/27/2014 History of bladder suspension procedure 12/2012 H/O local excision of skin lesion basal cell carcinoma right upper lip History of tonsillectomy History of hysterectomy Family History Family History Father Acute myocardial infarction Heart disease Mother Carcinoma of colon Hypertension Aortic stenosis Osteoporosis Grandparent Cerebrovascular accident Cancer Social History Social History Smoking status: Never smoker Second hand tobacco smoke exposure: No Alcohol intake: never Substance use: never Substance use type: does not use Do You Feel Safe in your Home?: Yes Lack of Transportation: No Lack of Food: Never True Current Housing: I Have Housing Concerned About Future Housing: No Difficulty Paying Gas/Electric Bills: No Difficulty Paying for Meds: No Currently Unemployed: No Education: Trade/Vocational Certificate Difficulty w/ Childcare or Family Care: No Living arrangements: with family Occupation/Education: retired Gender identity (if verbalized by the patient): Female Sexual Orientation (if Verbalized by the Patient): Straight or Heterosexual Spiritual care concerns: No Exam Narrative: APPEARANCE: No apparent distress. Head: atraumatic. EYES: EOMI, NOSE: Atraumatic NECK: Trachea midline RESPIRATORY: No increased rate of breathing, Clear to auscultation CARDIOVASCULAR: RRR, no peripheral edema ABDOMINAL: Non-distended soft nontender MUSCULOSKELETAl: No obvious deformities NEURO: Alert. Moving 4/4 extremities SKIN:: Warm, dry. Normal color PSYCHIATRIC: Normal affect Course Vital Signs Vital signs: Vital Signs Temperature 98.7 F 10/06/25 18:10 Pulse Rate 68 10/06/25 18:10 Respiratory Rate 18 10/06/25 18:10 Blood Pressure 139/78 10/06/25 18:10 Pulse Oximetry 97 10/06/25 18:10 Oxygen Delivery Room Air 10/06/25 18:10 Temperature 98.7 F 10/06/25 18:10 Pulse Rate 72 10/06/25 20:59 Respiratory Rate 18 10/06/25 20:59 Blood Pressure 138/81 10/06/25 20:59 Pulse Oximetry 94 10/06/25 20:59 Oxygen Delivery Room Air 10/06/25 18:10 Medical Decision Making MDM Narrative Medical decision making narrative: -Course: 80-year-old female presenting with flu-like symptoms. Vital signs are stable. No physical exam findings. Patient was positive for COVID. Chest x-ray was clear. On re-evaluation patient is resting comfortably. she has no oxygen requirements. she passed an ambulatory pulse ox test.We discussed admission versus discharge. The patient is comfortable going home. I have stressed the importance of return ED if her condition is to worsen. discharged primary care follow-up. -DDX includes but is not limited to: COVID, flu, sepsis, pneumonia, UTI independent interpretation studies: labs imaging reviewed Vital Signs Vital Signs: Vital Signs Temperature 98.7 F 10/06/25 18:10 Pulse Rate 68 10/06/25 18:10 Respiratory Rate 18 10/06/25 18:10 Blood Pressure 139/78 10/06/25 18:10 Pulse Oximetry 97 10/06/25 18:10 Oxygen Delivery Room Air 10/06/25 18:10 Temperature 98.7 F 10/06/25 18:10 Pulse Rate 72 10/06/25 20:59 Respiratory Rate 18 10/06/25 20:59 Blood Pressure 138/81 10/06/25 20:59 Pulse Oximetry 94 10/06/25 20:59 Oxygen Delivery Room Air 10/06/25 18:10 Lab Data 10/06/25 20:03 10/06/25 20:02 Labs: Lab Results 10/06/25 10/06/25 10/06/25 Range/Units 18:39 20:02 20:03 WBC 3.4 L (4.5-10.0) K/mm3 RBC 3.22 L (4.2-5.4) M/mm3 Hgb 11.6 L (12.0-15.0) g/dL Hct 34.1 L (37.0-47.0) % MCV 105.9 H (80-100) fl MCH 36.0 H (26-34) pg MCHC 34.0 (32-36) g/dl RDW 13.7 (11.5-14.5) % Plt Count 211 (150-375) k/mm3 MPV 8.8 (7.4-10.4) fl Immature Gran % (Auto) Not Reportable Neut % (Auto) Not Reportable Lymph % (Auto) Not Reportable Reagan % (Auto) Not Reportable Eos % (Auto) Not Reportable Baso % (Auto) Not Reportable Lymph # (Auto) Not Reportable Reagan # (Auto) Not Reportable Eos # (Auto) Not Reportable Baso # (Auto) Not Reportable Abs Immat Gran (auto) Not Reportable Absolute Neuts (auto) Not Reportable Absolute Nucleated RBC Not Reportable Total Counted 100 Neutrophils % (Manual) 66 (46-73) % Band Neutrophils % 8 H (0-6) % Lymphocytes % (Manual) 11.0 L (18-44) % Monocytes % (Manual) 13 H (3-9) % Basophils % (Manual) 2 H (0-1) % Nucleated RBC % Not Reportable Abs Neuts (Manual) 2.51 (1.3-6.7) K/mm3 Abs Lymphs (Manual) 0.37 L (1.1-4.5) K/mm3 Abs Monocytes (Manual) 0.44 (0.1-0.90) K/mm3 Abs Basophils (Manual) 0.06 (0.0-0.1) K/mm3 Nucleated RBCs 1 % Smudge Cells Present Platelet Estimate Adequate (Adequate) Anisocytosis 1+ Ovalocytes 1+ Susanna Cells 1+ Schistocytes None seen Sodium 123 L (137-145) mmol/L Potassium 4.1 (3.4-5.0) mmol/L Chloride 94 L (98-107) mmol/L Carbon Dioxide 23 (22-30) mmol/L Anion Gap 6 (4-12) mmol/L BUN 9 (7-17) mg/dL Creatinine 0.56 L (0.7-1.0) mg/dL Estim Creat Clear Calc 47 ml/min Estimated GFR > 60 (59 - ) Glucose 95 (65-110) mg/dL Lactic Acid 0.7 (0.7-2.0) mmol/L Calcium 8.4 (8.4-10.2) mg/dL Total Bilirubin 0.4 (0.2-1.3) mg/dL AST 37 H (14-36) U/L ALT 21 (6-35) U/L Alkaline Phosphatase 36 L (38-126) U/L Total Protein 6.4 (6.3-8.2) g/dL Albumin 3.9 (3.5-5.1) g/dL Urine Color Yellow (Yellow) Urine Appearance Clear (Clear) Urine pH 6.0 (5.0-9.0) Ur Specific Kipling 1.021 (1.001-1.035) Urine Protein Trace (Negative) mg/dL Urine Glucose (UA) Negative (Negative) mg/dL Urine Ketones 1+ H (Negative) mg/dL Ur Blood (Man) Trace (Negative) Urine Nitrate Negative (Negative) Urine Bilirubin Negative (Negative) Urine Urobilinogen 0.2 (<2.0) mg/dL Leukocyte Esterase Rfl Negative (Negative) YENNIFER/UL Urine RBC 11-20 H (0-2) /hpf Urine WBC 0-5 (0-3) /hpf Ur Squamous Epith Cells None seen (Few) /hpf Urine Bacteria None seen /hpf Urine Casts 0-2 Influenza A (RT-PCR) Negative (Negative) Influenza B (RT-PCR) Negative (Negative) RSV (RT-PCR) Negative (Negative) SARS-CoV-2 RNA (RT-PCR) Positive A (Negative) Discharge Plan Discharge Clinical Impression: COVID Patient Disposition: Home Condition: Stable Instructions: Antibiotic Form, COVID-19 (Coronavirus Disease 2019) (ED) Additional Instructions: You have COVID. Please use Tylenol for body aches and headaches. Please make sure you are drinking plenty of fluids. If you develop chest pain, shortness of breath or feel your condition is getting worse please return to the ED for re-evaluation. Otherwise follow-up with your primary care physician in 3-5 days. Patient Language: Amharic Prescriptions: No Action Relaxium 1 tablet PO QHS Qty: 100 0RF metoprolol succinate 100 mg tablet extended release 24 hr 100 mg PO .COMPLEX Rx Instructions: 1/2 tablet every morning and 1 tablet every evening letrozole 2.5 mg tablet 2.5 mg PO DAILY Ibrance 75 mg tablet PO vitamin B complex Capsule 1 cap QAM Reliv 1 scoop/day BYMOUTH DAILY cyclosporine [Restasis] 0.05 % Dropperette 1 drp EACH EYE Q12H amoxicillin 500 mg tablet 500 mg PO Q12H Qty: 14 0RF Follow-up/Referrals: Anirudh Crowley MD [Primary Care Provider, Family Practice]
[2025-10-06 20:59] VITALS: BP 138/81; PULSE 72; RESP 18; O2SAT 94
--- NOTE | 2025-10-06 21:03 | PC.NURSE ---
Patient ambulated 200 feet with standing portable pulse ox. Patient's pulse ox: 93-94% RA.
== END 2025-10-06 21:17 | disposition home or self-care (01) ==
PROVIDERS: Emergency Medicine; Emergency Provider Emergency Medicine; PCP Family Medicine
DX: U07.1 COVID-19 (principal); E55.9 Vitamin D deficiency, unspecified; I10 Essential (primary) hypertension; Z85.3 Personal history of malignant neoplasm of breast
CPT/HCPCS: 36415; 71045; 80053; 81001; 83605; 85025; 87637; 93005; 99284